=== PATIENT | female | born 1940 | race Caucasian/White ===

== ENCOUNTER 2024-01-21 08:46 | Outpatient (CLI) | payer MEDICARE, SELFPAY ==
--- NOTE | 2024-01-21 | ECHO_ITS ---
Patient Info Name: Lillian Hayden Age: 83 years : 1940 Gender: Female Ht: 60 in Wt: 147 lbs BSA: 1.70 m2 HR: 77 bpm BP: 142 / 85 mmHg Heart Rhythm: Sinus Rhythm Technical Quality: Good Exam Date: 01/21/2024 9:49 AM Exam Location: Echo Lab Patient Status: Outpatient Admit Date: 01/21/2024 Staff Ordering Physician: Marlo, Cirilo FLETCHER Dispatch Specialist: Attending Provider: Marlo, Cirilo FLETCHER Exam Type: CA echo doppler color flow Study Info Indications R01.1 - Cardiac murmur, unspecified Complete two-dimensional, color flow and Doppler transthoracic echocardiogram is performed. Summary 1. Complete two-dimensional, color flow and Doppler transthoracic echocardiogram is performed. 2. Left ventricular chamber dimension is normal. 3. Left ventricular systolic function is normal, estimated at 65-70%. 4. There is mildly increased left ventricular wall thickness. 5. Left ventricular septal wall motion is abnormal with septal motion related to bundle branch block. 6. The left ventricular diastolic function is grade I diastolic dysfunction. 7. There is mild mitral valve regurgitation. Left Ventricle Left ventricular chamber dimension is normal. Left ventricular systolic function is normal, estimated at 65-70%. There is mildly increased left ventricular wall thickness. Left ventricular septal wall motion is abnormal with septal motion related to bundle branch block. The left ventricular diastolic function is grade I diastolic dysfunction. Right Ventricle Right ventricular chamber dimension is normal. Right ventricular systolic function is normal. Left Atria Left atrial chamber dimension is normal. Right Atria Right atrial chamber dimension is normal. Aortic Valve The aortic valve is trileaflet. There is no aortic valve stenosis. There is no aortic valve regurgitation. Pulmonic Valve The pulmonic valve is normal. There is trace pulmonic regurgitation. Mitral Valve The mitral valve has thickened leaflets. There is mild mitral valve regurgitation. The mitral valve annulus is severely calcified. Tricuspid Valve The tricuspid valve leaflets are normal. There is trace tricuspid valve regurgitation. Unable to assess PA systolic pressure due to poor spectral resolution of tricuspid regurgitant jet velocity. Pericardium/Pleural The pericardium appears normal. There is trivial pericardial effusion. Inferior Vena Cava Dilated inferior vena cava with >50% collapse upon inspiration consistent with elevated right atrial pressure, 10 mmHg. Aorta The aortic root size at the sinus of Valsalva is normal. Left Ventricular Outflow Tract Name Value Normal LVOT 2D LVOT Diameter 2.0 cm LVOT Doppler LVOT Peak Gradient 4 mmHg LVOT Mean Gradient 2 mmHg LVOT VTI 23 cm LVOT VTI/AV VTI Ratio 0.6 LVOT Stroke Volume 72 ml LVOT CO 4.7 l/min LVOT CI 2.7 l/min/m2 Pulmonic Valve Name Value
== END 2024-01-21 08:47 | disposition home or self-care (01) ==
PROVIDERS: PCP Internal Medicine; Visit Provider Internal Medicine
DX: R93.1 Abnormal findings on diagnostic imaging of heart and coronary circulation (principal); I34.0 Nonrheumatic mitral (valve) insufficiency; I07.1 Rheumatic tricuspid insufficiency
CPT/HCPCS: 93306

== ENCOUNTER 2024-01-23 09:38 | Outpatient (CLI) | payer MEDICARE, SELFPAY ==
--- NOTE | ~2024-01-23 | XR_ITS ---
Right Knee Technique: AP, lateral, and sunrise views were obtained. Clinical History: Osteoarthritis Findings: No fracture or dislocation is seen. Osseous alignment is anatomic. Minimal tricompartmental degenerative spurring present. Soft tissues are unremarkable. No joint effusion is seen. Impression: Minimal tricompartmental degenerative spurring. Reviewed, dictated and finalized at [facility]. Impression: Minimal tricompartmental degenerative spurring.
--- NOTE | ~2024-01-23 | XR_ITS ---
Left Knee Technique: AP, lateral, and sunrise views were obtained. Clinical History: Osteoarthritis Findings: No fracture or dislocation is seen. Osseous alignment is anatomic. There is moderate medial joint line spurring and probable medial compartment narrowing. There is mild spurring at the remaind er of the knee.. Soft tissues are unremarkable. No joint effusion is seen. Impression: Moderate medial compartment degenerative change, and mild lateral and patellofemoral compartment dege nerative change. Reviewed, dictated and finalized at location M. Impression: Moderate medial compartment degenerative change, and mild lateral and patellofe moral compartment degenerative change.
== END 2024-01-23 09:39 | disposition home or self-care (01) ==
PROVIDERS: PCP Internal Medicine; Visit Provider Orthopaedic Surgery
DX: M17.0 Bilateral primary osteoarthritis of knee (principal)
CPT/HCPCS: 73564

== ENCOUNTER 2024-03-17 19:38 | Observation (INO) | payer MEDICARE, SELFPAY ==
[2024-03-17] VITALS (15 sets, daily range): BP systolic 134–154; BP diastolic 48–88; PULSE 67–77; RESP 14–16; TEMP 36.6; O2SAT 94–100
--- NOTE | ~2024-03-17 | CT_ITS ---
EXAMINATION: CTA BRAIN/CAROTID DATE: 03/17/2024 21:22 INDICATION: Left eye temporal visual field loss. TECHNIQUE: Computed tomographic angiography (CTA) of the head and neck was performed with 100 mL Omni paque-350 intravenous contrast. Multiplanar reconstructions and maximum intensity projection 3D-recon structions of the carotid arteries and of the intracranial arteries were created by the technologist on a separate workstation. Precontrast CT of the head was also obtained. Automated exposure control and iterative reconstruction technique were employed.The dose-length product was 1734.68 mGy-cm. COMPARISON: None. FINDINGS: Carotid arteries: Aortic arch is normal in caliber with no dissection. There is small amount of atherosclerotic plaque with 0% stenosis of the right carotid bulb relative to normal distal artery lumen diameter (NASCET cr iteria). There is no evident plaque with 0% stenosis of the left carotid bulb relative to normal dist al artery lumen diameter. The proximal bilateral vertebral arteries are tortuous. Multinodular goiter with largest nodule measuring at least 2 cm in the right thyroid lobe. Visualized upper lungs are cl ear. Severe cervical spondylosis. Prominent erosion at the right base of the dens. Head: No acute intracranial hemorrhage, acute infarction or abnormal extra axial fluid collection. There is mild scattered white matter hypoattenuation consistent with chronic small vessel ischemic disease. S ymmetric prominence of the sulci and ventricles consistent with mild to moderate age-appropriate diff use cerebral volume loss. No mass/mass effect. Changes of bilateral intraocular lens replacement. The orbits, paranasal sinuses and mastoid air cells are normal. No abnormally enhancing brain lesions on the post contrast images. Intracranial arteries There is no hemodynamically significant stenosis in the vertebral, basilar and internal carotid arter ies. Vertebral arteries are codominant. There are no aneurysms identified. Both A1 and P1 segments a re patent. The left P1 segment is diminutive with the majority of flow to the left posterior cerebral artery supplied via a larger caliber left posterior communicating artery. There appears to be a dimi nutive right posterior communicating artery. Cerebral arterial arborization appears symmetric. IMPRESSION: 1. 0% stenosis of the right and left carotid bulbs relative to normal distal artery lumen diameter (N ASCET criteria). 2. Age-related changes in the brain including mild to moderate diffuse volume loss and mild scattered white matter hypoattenuation consistent with chronic small vessel ischemic disease. No acute intracr anial process. 3. Unremarkable cerebral CT angiogram with no hemodynamically significant stenosis, aneurysm or disse ction. Reviewed, dictated and finalized at location A. IMPRESSION: 1. 0% stenosis of the right and left carotid bulbs relative to normal distal ar phil lumen diameter (NASCET criteria). 2. Age-related changes in the brain including mild to moderate diffuse volume l oss and mild scattered white matter hypoattenuation consistent with chronic sma ll vessel ischemic disease. No acute intracranial process. 3. Unremarkable cerebral CT angiogram with no hemodynamically significant steno sis, aneurysm or dissection.
--- NOTE | ~2024-03-17 | MR_ITS ---
MRI of the brain Clinical History: TIA Technique: Axial and sagittal T1-weighted images were acquired. These were followed by axial T2-weigh victoria, diffusion weighted, gradient, and FLAIR images. Findings: There is no acute infarct, intracranial hemorrhage or mass lesion identified. There are mil d chronic microvascular ischemic changes in the periventricular white matter bilaterally. Ventricles and subarachnoid spaces are mildly dilated. Orbits are unremarkable. Paranasal sinuses and mastoid air cells are clear. Major intracranial flow voids are intact. Sagittal midline structures are intact. IMPRESSION: No acute infarct, intracranial hemorrhage, or mass lesion. Mild generalized atrophy and mild chronic microvascular ischemic changes. Reviewed, dictated and finalized at location .
--- NOTE | 2024-03-17 20:20 | ED.GENADULT ---
HPI - General Adult General Chief complaint: Eye Problems Stated complaint: VISION PROBLEMS Time Seen by Provider: 03/17/24 19:56 History of Present Illness HPI narrative: This is an 83-year-old woman presenting with a brief episode of painless vision loss. At 6:50 a.m. the patient noticed that she had lost the temporal field left eye. It returned by 710pm. No other associated neurologic deficits. No pain in her eye. Related Data Allergies Allergy/AdvReac Type Severity Reaction Status Date / Time adhesive tape Allergy Blister Verified 03/17/24 19:42 aspirin Allergy Nausea and Verified 03/17/24 19:42 Vomiting Penicillins Allergy Hives Verified 03/17/24 19:42 Exam Narrative: APPEARANCE: No apparent distress. Head: atraumatic. EYES: EOMI, NOSE: Atraumatic NECK: Trachea midline RESPIRATORY: No increased rate of breathing, CTAB CARDIOVASCULAR: RRR, peripheral edema-chronic ABDOMINAL: Non-distended ,soft nontender MUSCULOSKELETAl: No obvious deformities NEURO: Alert. Cranial nerves 2-12 grossly intact. Sensation light touch, motor function cerebellar function intact for 4 extremities. Gait exam was normal. SKIN:: Warm, dry. Normal color PSYCHIATRIC: Normal affect Eye exam: Fluorescein stain unremarkable. IOP 18 bilaterally, L 20/50 R 20/70 No visual field deficits. Unable to visualize the retina via funduscopy NIH 0 Course Vital Signs Vital signs: Vital Signs Temperature 97.8 F 03/17/24 19:37 Pulse Rate 73 03/17/24 19:37 Respiratory Rate 16 03/17/24 19:37 Blood Pressure 154/68 H 03/17/24 19:37 Pulse Oximetry 100 03/17/24 19:37 Oxygen Delivery Room Air 03/17/24 19:37 Temperature 97.8 F 03/17/24 19:37 Pulse Rate 67 03/17/24 23:33 Respiratory Rate 16 03/17/24 23:33 Blood Pressure 147/88 H 03/17/24 23:33 Pulse Oximetry 97 03/17/24 23:33 Oxygen Delivery Room Air 03/17/24 19:37 Medical Decision Making [facility] Narrative Medical decision making narrative: -Course: 83-year-old female presenting with painless loss of vision in her left eye. Symptoms lasted approximately [address] NIH is 0. CT imaging negative for acute findings did show multiple age-related findings. case was discussed with Dr. Hagan who recommended dual anti-platelet therapy, echocardiogram and MRI. Patient given aspirin/plavix. Patient will be admitted for TIA workup. -DDX includes but is not limited to: TIA/CVA, retinal artery occlusion retinal vein occlusion, retinal detachment -Co-morbidities complicating care: Hypertension, CHF -Independent interpretation of studies: labs reviewed. Potassium was 3.2 which is repleted orally. CTA head and neck showed: 1. 0% stenosis of the right and left carotid bulbs relative to normal distal artery lumen diameter (NASCET criteria). 2. Age-related changes in the brain including mild to moderate diffuse volume loss and mild scattered white matter hypoattenuation consistent with chronic small vessel ischemic disease. No acute intracranial process. 3. Unremarkable cerebral CT angiogram with no hemodynamically significant stenosis, aneurysm or dissection. Independent EKG interpretation: Rhythm [sinus], Rate [63], [place] -[normal], [place] -[ Prolonged, QRS [narrow], QTC [normal], T waves -[negative for concerning inversions], ST Segments - [Negative for concerning elevations] Final interpretations: sinus rhythm with first-degree AV block and 1 dropped beat. Possibly 2nd degree block Mobitz I vs. non-conducted PAC. -Discussion of Management/Consultants:Danya - Neurology, Betty - hospitalist -Interventions: plavix, 1 L NS, 40 meq potassium -Shared decision making / Disposition: observation Vital Signs Vital Signs: Vital Signs Temperature 97.8 F 03/17/24 19:37 Pulse Rate 73 03/17/24 19:37 Respiratory Rate 16 03/17/24 19:37 Blood Pressure 154/68 H 03/17/24 19:37 Pulse Oximetry 100 03/17/24 19:37 Oxygen Delivery Room Air 03/17/24 19
[2024-03-17] MEDS: SODIUM CHLORIDE 0.9% IV 1,000 ML 999 ML IV CONT (20:27)
[2024-03-17 20:45] LABS: Basophils Percent Auto 0.5 % (0.2-1.2); Eosinophils Absolute Auto 0.1 K/mm3 (0-0.3); Eosinophils Percent Auto 2.6 % (0-4.4); Hemoglobin 11.1 g/dL (12.0-15.0); Immature Granulocyte Absolute 0.01 K/mm3 (0.00-0.031); Immature Granulocyte Percent A 0.2 % (0-0.5); Immature Platelet Fraction Pct 3.9 % (0.9-11.2); Lymphocytes Absolute Auto 1.49 K/mm3 (0.9-3.2); Lymphocytes Percent Auto 35.7 % (18.3-44.2); Mean Corpuscular HGB Conc 32.6 g/dl (32-36); Mean Platelet Volume 10.4 fl (7.4-10.4); Monocytes Absolute Auto 0.4 K/mm3 (0.1-0.6); Monocytes Percent Auto 10.1 % (2.6-8.5); Neutrophils Absolute Auto 2.1 K/mm3 (1.3-6.7); Neutrophils Percent Auto 50.9 % (45.5-73.1); Platelet Count Result 119 k/mm3 (150-375); Red Blood Count 3.47 M/mm3 (4.2-5.4); Red Cell Distribution Width 13.1 % (11.5-14.5); White Blood Count 4.2 K/mm3 (4.5-10.0)
[2024-03-17 20:54] LABS: Prothrombin Time 13.4 Seconds (11.1-14.7)
[2024-03-17 20:55] LABS: Alanine Aminotransferase 11 U/L (6-35); Albumin Level 3.6 g/dL (3.5-5.1); Alkaline Phosphatase 69 U/L (38-126); Anion Gap 4 mmol/L (4-12); Aspartate Amino Transferase 21 U/L (14-36); Bilirubin,Total 0.5 mg/dL (0.2-1.3); Blood Urea Nitrogen 22 mg/dL (7-17); Calcium 8.9 mg/dL (8.4-10.2); Carbon Dioxide 28 mmol/L (22-30); Chloride 108 mmol/L (98-107); Estimated Glomerular Filt Rate > 60; Glucose 116 mg/dL (65-110); Potassium 3.2 mmol/L (3.4-5.0); Sodium 140 mmol/L (137-145)
[2024-03-17 20:55] LABS: Partial Thromboplastin Time 28.6 Seconds (22.3-36.8)
[2024-03-17] MEDS: POTASSIUM CHLORIDE 20 MEQ PACKET (FOR LIQUID) 40 MEQ PO (22:02)
[2024-03-17] MEDS: CLOPIDOGREL BISULFATE 75 MG TABLET PO (23:08)
--- NOTE | 2024-03-17 23:41 | ECG_ITS ---
SEE SCANNED COPY FOR CONFIRMED REPORT MTDD
[2024-03-18] VITALS (12 sets, daily range): BP systolic 113–162; BP diastolic 40–71; PULSE 65–90; RESP 14–18; TEMP 36.3–36.7; O2SAT 95–99
--- NOTE | 2024-03-18 | ECHO_ITS ---
Patient Info Name: Lillian Hayden Age: 83 years : 1940 Gender: Female Ht: 58 in Wt: 150 lbs BSA: 1.70 m2 HR: 90 bpm BP: 113 / 40 mmHg Heart Rhythm: Sinus Rhythm Technical Quality: Good Exam Date: 03/18/2024 9:28 AM Exam Location: Echo Lab Patient Status: Outpatient Admit Date: 03/18/2024 Staff Ordering Physician: Kayley Hernández DO Qa Specialist: Akilah Gomez RDCS Attending Provider: Kayley Hernández DO Referring Physician: Betty BUSBY; Exam Type: CA echo doppler w bubble study Study Info Indications - TIA Complete two-dimensional, color flow and Doppler transthoracic echocardiogram is performed. Summary 1. Left ventricular chamber dimension is normal. 2. Left ventricular systolic function is normal, estimated at 65-70%. 3. The left ventricular diastolic function is grade I diastolic dysfunction. 4. Right ventricular chamber dimension is mildly enlarged. 5. Right ventricular systolic function is normal. 6. Left atrial chamber dimension is moderately enlarged. 7. Right atrial chamber dimension is mildly enlarged. 8. Suspected patent foramen ovale visualized by agitated saline imaging. There is a small right to left shunt with bubble study consistent with possible PFO. 9. There is mild mitral valve regurgitation. 10. There is moderate tricuspid valve regurgitation. The degree of regurgitation may be underestimated due to eccentricity of the jet. Left Ventricle Left ventricular chamber dimension is normal. Left ventricular systolic function is normal, estimated at 65-70%. There is no increased left ventricular wall thickness. The left ventricular diastolic function is grade I diastolic dysfunction. Right Ventricle Right ventricular chamber dimension is mildly enlarged. Right ventricular systolic function is normal. Left Atria Left atrial chamber dimension is moderately enlarged. Right Atria Right atrial chamber dimension is mildly enlarged. Atrial Septum Suspected patent foramen ovale visualized by agitated saline imaging. There is a small right to left shunt with bubble study consistent with possible PFO. Aortic Valve The aortic valve is trileaflet. There is no aortic valve stenosis. There is no aortic valve regurgitation. Pulmonic Valve The pulmonic valve is not well visualized. There is trace pulmonic regurgitation. Mitral Valve There is mild mitral valve regurgitation. The mitral valve annulus is mildly calcified. Tricuspid Valve There is moderate tricuspid valve regurgitation. The degree of regurgitation may be underestimated due to eccentricity of the jet. Pericardium/Pleural There is no pericardial effusion. Inferior Vena Cava The IVC was not visualized. Aorta The aortic root size at the sinus of Valsalva is normal. Left Ventricular Outflow Tract Name Value Normal LVOT 2D LVOT Diameter 1.8 cm LVOT Doppler LVOT Peak Gradient 3 mmHg LVOT Mean Gradient 2 mmHg LVOT VTI 27 cm LVOT VTI/AV VTI Ratio 0.7 LVOT Stroke Volume 68 ml LVOT CO 4.2 l/min LVOT CI
--- NOTE | 2024-03-18 00:34 | ADMGEN ---
This patient, Andres Hayden, was admitted to Medical Room 251-. Patient/family oriented to hospital policies and general routines including ID bracelet, bed and alarms, visiting hours, pain management, procedures, bathroom and other care routines, personal items, smoking policy, room service/diet, and visiting hours. Information on how to activate the Rapid Response Team has been discussed. Patient/Family are encouraged to report perceived risks to care and to ask questions if they do not understand what they are told or what they should do.
--- NOTE | 2024-03-18 07:14 | PM.IMHP ---
H&P: HPI History of Present Illness Date/Time: 03/18/24 07:14 Chief Complaint: Visual changes Narrative: this is a 83-year-old female with a past medical history of hypertension and hyperlipidemia presented to the ED on 03/17/2024 due to painless vision loss. She had an episode earlier that day that resolved and then again in the evening that prompted her to present to the ED. at the time of her presentation vision changes had resolved. She has no history of CVA in the past. No other neurological deficits. CT of the head negative for acute findings. Neurology consulted and wanted the patient admitted for an echocardiogram and MRI as well as starting her on aspirin and Plavix. Patient was admitted to the medical floor echocardiogram and MRI were ordered. At approximately 3:00 p.m. patient decided to leave AMA. Patient's MRI and echocardiogram were not read yet. Will call patient with results. [facility] Past Medical History Medical History (Updated 03/18/24 @ 08:30 by Misha Quintana) History of cardiac disorder Hyperlipidemia Hypertension Hypertension Osteoporosis Surgical History Surgical History (Updated 03/18/24 @ 08:30 by Misha Quintana) Cataract extraction status (~2018) Family History Family History (System 03/18/24 @ 08:30 by Misha Quintana) Father Heart attack Other Breast cancer Heart disease Arthritis Other Family history of arthritis Family history of congenital heart disease Family history of malignant neoplasm of breast Social History Social History (System 03/18/24 @ 08:30 by Misha Quintana) Smoking status: Never smoker Alcohol intake: never Substance use: never Substance use type: does not use Do You Feel Safe in your Home?: Yes Lack of Transportation: No Lack of Food: Never True Current Housing: I Have Housing Concerned About Future Housing: No Difficulty Paying Gas/Electric Bills: No Difficulty Paying for Meds: No Currently Unemployed: No Education: High School Diploma/GED Difficulty w/ Childcare or Family Care: No Spiritual care concerns: No Meds Home Medications and Allergies Home Medications Medication Instructions Recorded Confirmed Type atorvastatin 10 mg tablet 10 mg PO DAILY 10/20/19 01/26/24 History furosemide 40 mg tablet 40 mg PO QAM 10/20/19 01/26/24 History losartan 100 mg tablet 100 mg PO DAILY 10/20/19 01/26/24 History acetaminophen 650 mg 650 mg PO Q12H 04/14/23 01/26/24 History tablet,extended release (Tylenol Arthritis Pain) Dialyvite Vitamin D 50 mcg PO DAILY 03/18/24 03/18/24 History Ocuvite 1 tab-cap PO DAILY 03/18/24 03/18/24 History atorvastatin 10 mg tablet 10 mg PO DAILY 03/18/24 03/18/24 History furosemide 40 mg tablet 40 mg PO DAILY 03/18/24 03/18/24 History losartan 100 mg tablet 100 mg PO DAILY 03/18/24 03/18/24 History potassium chloride 10 mEq 10 meq PO DAILY 03/18/24 03/18/24 History tablet,extended release Allergies Allergy/AdvReac Type Severity Reaction Status Date / Time egg Allergy Mild DIARRHEA, Verified 03/18/24 08:30 SICK TP STOMACH. DOES NOT GET FLU SHOT ampicillin Allergy Unknown Unknown Verified 03/18/24 08:30 adhesive tape Allergy Blister Verified 03/18/24 08:30 aspirin Allergy Nausea and Verified 03/18/24 08:30 Vomiting Penicillins Allergy Hives Verified 03/18/24 08:30 codeine AdvReac Mild THROWS UP Verified 03/18/24 08:30 Sulfa (Sulfonamide AdvReac Mild THROW UP Verified 03/18/24 08:30 Antibiotics) Vital Signs Vital Signs - 24 hr 03/17/24 19:37 03/17/24 20:52 03/17/24 20:07 Temperature 97.8 F Pulse Rate 73 74 Respiratory Rate 16 16 Blood Pressure 154/68 H 142/49 H Pulse Oximetry 100 94 97 Oxygen Delivery Room Air 03/17/24 20:17 03/17/24 20:18 03/17/24 20:30 Temperature Pulse Rate 67 Respiratory Rate 14 Blood Pressure 134/48 L Pulse Oximetry 98 98 97 Oxygen Delivery 03/17/24 20:45 03/17/24 21:00
[2024-03-18 07:43] LABS: Hematocrit 34.8 % (37.0-47.0); Hemoglobin 11.1 g/dL (12.0-15.0); Immature Platelet Fraction Pct 3.4 % (0.9-11.2); Mean Corpuscular HGB Conc 31.9 g/dl (32-36); Mean Corpuscular Hemoglobin 31.5 pg (26-34); Mean Corpuscular Volume 98.9 fl (80-100); Mean Platelet Volume 10.7 fl (7.4-10.4); Platelet Count Result 121 k/mm3 (150-375); Red Blood Count 3.52 M/mm3 (4.2-5.4); Red Cell Distribution Width 13.2 % (11.5-14.5); White Blood Count 3.7 K/mm3 (4.5-10.0)
[2024-03-18 07:57] LABS: Anion Gap 2 mmol/L (4-12); Blood Urea Nitrogen 15 mg/dL (7-17); Calcium 8.8 mg/dL (8.4-10.2); Carbon Dioxide 28 mmol/L (22-30); Chloride 108 mmol/L (98-107); Cholesterol 126 mg/dL (0-200); Estimated Glomerular Filt Rate > 60; Glucose 93 mg/dL (65-110); HDL Direct 69 mg/dL; Potassium 3.6 mmol/L (3.4-5.0); Sodium 138 mmol/L (137-145); Triglycerides 71 mg/dL (<150)
[2024-03-18 08:02] LABS: LDL Cholesterol Direct 60 mg/dL
[2024-03-18] MEDS: POTASSIUM CHLORIDE 10 MEQ ER TABLET PO (08:17)
[2024-03-18] MEDS: ATORVASTATIN 10 MG TABLET PO (08:18)
[2024-03-18] MEDS: LOSARTAN POTASSIUM 100 MG TABLET PO (08:18)
[2024-03-18] MEDS: FUROSEMIDE 40 MG TABLET PO (08:18)
[2024-03-18 09:55] LABS: Hemoglobin A1C 5.1 % (<5.7)
--- NOTE | 2024-03-18 16:10 | WPDNEURCNPN ---
Assessment and Plan Assessment and plan (1) Brain TIA: Code(s): G45.9 - Transient cerebral ischemic attack, unspecified Status: Acute Plan Patient is doing very well. Her CT angiogram of the head and neck and a CT scan of the brain were performed these did not show any abnormalities. MRI of the brain also did not show evidence for any acute stroke. Hence he should continue the statins and antiplatelets for now. I noted she is on atorvastatin 10 mg a day and day clopidogrel 75 mg a day. If he recurrent events I shall be glad to address them. Thank you very much for allowing sees patient Consult date: 03/18/24 HPI: Lillian Hayden is a 83 year old female history of sudden loss of vision on the left side that lasted for 20 minutes. She had no pain or any change in mental status or any weakness in upper lower limbs. Never had similar symptoms in the past. CT scan of brain and CT angiogram of his neck were performed did not show any abnormalities. Her LDL was 60. Patient told me that she has macular degeneration however this is a long-standing problem. There is no history of recent head trauma or febrile illness of any kind. Review of Systems Review of Systems: All systems reviewed & are unremarkable except as noted in HPI and below Constitutional: Constitutional: Denies chills, Denies fever(s) and Denies weight loss Eyes: Eyes: Denies diplopia and Reports loss of vision Comments: As discussed above she had transient loss of vision in the left half of the field for 20 minutes or so ENT: Denies dizziness, Denies hearing loss and Denies tinnitus Cardiovascular: Cardiovascular: Denies chest pain, Denies syncope and Denies dyspnea Respiratory: Respiratory: Denies cough, Denies dyspnea and Denies wheezing Gastrointestinal: Gastrointestinal: Denies abdominal pain, Denies change in bowel habits and Denies vomiting Genitourinary: Genitourinary: Denies urinary incontinence Musculoskeletal: Musculoskeletal: Denies arthralgias and Denies joint swelling Integumentary/Breasts: Skin/Breast: Denies new lesions and Denies rash Neurologic: Reports as per HPI, Denies dizziness, Denies syncope and Denies loss of vision Comments: Patient's daughter think that she is somewhat forgetful Psychiatric: Psychiatric: Denies anxiety and Denies depression Endocrine: Endocrine: Denies cold intolerance and Denies heat intolerance Hematologic/Lymphatic: Hematologic/Lymphatic: Denies easy bleeding and Denies easy bruising Allergic/Immunologic: Allergic/Immunologic: Denies no additional allergic/immunologic complaints and Denies wheezing PMFSH Past Medical History Medical History History of cardiac disorder Hyperlipidemia Hypertension Hypertension Osteoporosis Surgical History Surgical History Cataract extraction status (~2019) Family History Family History Father Heart attack Other Breast cancer Heart disease Arthritis Other Family history of arthritis Family history of congenital heart disease Family history of malignant neoplasm of breast Social History Social History Smoking status: Never smoker Alcohol intake: never Substance use: never Substance use type: does not use Do You Feel Safe in your Home?: Yes Lack of Transportation: No Lack of Food: Never True Current Housing: I Have Housing Concerned About Future Housing: No Difficulty Paying Gas/Electric Bills: No Difficulty Paying for Meds: No Currently Unemployed: No Education: High School Diploma/GED Difficulty w/ Childcare or Family Care: No Spiritual care concerns: No Meds Home Medications and Allergies Home Medications Medication Instructions Recorded Confirmed Type atorvastatin
== END 2024-03-18 14:57 ==
LOC: ANHED 22:59 → ANH2MED 03-18 00:22
PROVIDERS: Internal Medicine Critical Care Medicine; Admitting Provider Internal Medicine; Emergency Provider Emergency Medicine; PCP Internal Medicine; Visit Provider Internal Medicine
DX: G45.9 Transient cerebral ischemic attack, unspecified (principal); I11.9 Hypertensive heart disease without heart failure; I08.1 Rheumatic disorders of both mitral and tricuspid valves; E78.5 Hyperlipidemia, unspecified; M81.0 Age-related osteoporosis without current pathological fracture; Z79.899 Other long term (current) drug therapy
CPT/HCPCS: 36415; 70496; 70498; 70551; 80048; 80053; 80061; 83036; 85025; 85027; 85055; 85610; 85730; 93005; 93306; 96360; 96375; 99285; A9270; G0378; J7030; Q9967

== ENCOUNTER 2025-02-02 08:50 | Outpatient (CLI) | payer MEDICARE, SELFPAY ==
--- NOTE | ~2025-02-02 | XR_ITS ---
XR knee RT min 4V Ordering provider: Phil Garza MD History: . Primary osteoarthritis of lt and rt knee . Comparison: January 23, 2024 FINDINGS: BONES: No acute fracture or dislocation. JOINT SPACES: Severe narrowing of the lateral compartment. Slight narrowing of the medial compartment . Marginal osteophytes seen in the knee and patella. SOFT TISSUES: Normal. IMPRESSION: No acute osseous abnormality right knee. Severe osteoarthritic changes. Reviewed, dictated and finalized at location A.
--- NOTE | ~2025-02-02 | XR_ITS ---
XR knee LT min 4V Ordering provider: Phil Garza MD History: . Primary osteoarthritis of lt and rt knee . Comparison: January 23, 2024 FINDINGS: BONES: No acute fracture or dislocation. JOINT SPACES: Severe narrowing of the medial compartment marginal osteophytes seen in the knee and pa tella. Chondrocalcinosis is noted in the lateral meniscus. SOFT TISSUES: Normal. IMPRESSION: No acute osseous abnormality left knee. Severe osteoarthritic changes. Chondrocalcinosis. Reviewed, dictated and finalized at location A.
--- OUTSIDE RECORDS SUMMARY | 2025-02-02 09:37 | XMS_ITS | Clinical Summary ---
Author Organization [facility] [employer] Address [address] [place] [address] Care Team Providers Care Coal Passer Name Role Phone Cirilo Sellers MD Primary Care Provider [phone] Cirilo Sellers MD Unavailable [phone] Source Comments [facility],non-owned Affiliates and Associated Physician Practices is amultiple site organization consisting of ambulatory clinics and hospital sitesin [place], [place], [place] and [place]. This disclosure is being madepursuant to the Care Everywhere program and may not contain all information available regarding this patient. Last updated 18.[facility] Allergies Active Allergy Reactions Criticality Noted Date Comments Adhesive Sensitivity Rash High 09/05/2021 Aspirin Vomiting 03/26/2017 Penicillins 03/26/2017 Sulfa Drugs Itching 03/26/2017 Medications * Be aware that medications may not be up to date on this document. Alwaysverify current medications with the patient. Medication Sig Dispensed Refills Start Date End Date Status furosemide (LASIX) 20 MG tablet Take 20 mg by mouth once daily Active ATORVASTATIN CALCIUM PO Active losartan (COZAAR) 100 MG tablet 08/17/2021 Active traMADol (ULTRAM) 50 MG tablet Take 1 (one) tablet by mouth every 6 hours as needed for Pain 12 tablet 09/28/2021 Active Additional Information Patient not taking.Reported on 10/15/2021 potassium chloride ER (KLOR-CON M) 20 MEQ tablet potassium chloride ER 20 mEq tablet,extended release(part/cryst) TAKE 1 TABLET BY MOUTH EVERY DAY Active clindamycin (CLEOCIN) 150 MG capsule clindamycin HCl 150 mg capsule TAKE 1 CAPSULE BY MOUTH THREE TIMES DAILY FOR 3 DAYS Active Active Problems Problem Noted Date Diagnosed Date Malignant melanoma of right forearm 09/05/2021 Cancer Staging:Clinical:Stage IIB(cT3b, cN0, cM0) - Unsigned Pathologic stage from 02/19/2022:Stage IIB(pT3b, pN0, cM0) - Signed by Jaya Chang MD on 02/19/2022 Social History Tobacco Use Types Packs/Day Years Used Date Smoking Tobacco: Never Smokeless Tobacco: Never Alcohol Use Standard Drinks/Week Comments Never 0 (1 standard drink = 0.6 oz pur e alcohol) AUDIT-C Answer Date Recorded Q1: How often do you have a drink containing alc ohol? Never 09/27/2021 Average Number of Drinks Not on file 021 Q3: How often do you have si x or more drinks on one occasion? Never 09/27/2021 Sex and Gender Information Value Date Recorded Sex Assigned at Not on file Gender Identity Not on file Sexual Orientation Not on file Last Filed Vital Signs Vital Sign Reading Time Taken Comments Blood Pressure 150/66 10/15/2021 1:57 PM GLOBAL IMPLEMENTATION MANAGER Pulse 77 10/15/2021 1:57 PM GLOBAL IMPLEMENTATION MANAGER Temperature 36.1 C (96.9 F) 10/15/2021 1:57 PM GLOBAL IMPLEMENTATION MANAGER Respiratory Rate 12 09/27/2021 3:00 PM GLOBAL IMPLEMENTATION MANAGER Oxygen Saturation 99% 10/15/2021 1:57 PM GLOBAL IMPLEMENTATION MANAGER Inhaled Oxygen Concentration - - Weight 78.9 kg (174 lb) 10/15/2021 1:57 PM GLOBAL IMPLEMENTATION MANAGER Height 152.4 cm (5') 10/15/2021 1:57 PM GLOBAL IMPLEMENTATION MANAGER Body Mass Index 33.98 10/15/2021 1:57 PM GLOBAL IMPLEMENTATION MANAGER Plan of Treatment Health Maintenance Due Date Last Done Comments BONE DENSITY TESTING 1940 MEDICARE AWV 12 MONTHS 1940 DTAP/TDAP/TD VACCINES (1 - Tdap) 1957 PNEUMOCOCCAL VACCINE 50+ (1 of 1 - PCV) 1988 ZOSTER VACCINE (1 of 2) 1988 Respiratory Syncytial Virus (RSV) Vaccine Pt: or over 60 yrs (1 - 1-dose 75+ series) 2013 COVID-19 VACCINE (3 - 2023-2 5 season) 2024 01/23/2021, 12/26/2020 INFLUENZA VACCINE (#1) 2024 DEPRESSION SCREENING 11/10/2024 HEPATITIS B VACCINE Aged Out No longe r eligible based on patient's age to complete this topic HIB VACCINE Aged Out No longer eligi ble based on patient's age to complete this topic HPV VACCINE Aged Out No longer eligi ble based on patient's age to complete this topic MENINGOCOCCAL (Group B) VACCINE SHARED DECISION-MAKING Aged Out No longer eligible based on patient's age to complete this topic MENINGOCOCCAL GROUPS A/C/Y/W VACCINE Aged Out No longer eligible b ased on patient's age to complete this topic Advance Directives Documents on File Type Date Recorded Patient Faa Certified Powerplant Mechanic Expl anation Adv Directive/Living Will/POA 03/26/2017 Care Teams Coal Passer Relationship Specialty Start Date End Date Cirilo Sellers MD PCP - General 08/22/21 Cirilo Sellers MD Internal Medicine 08/22/21
--- OUTSIDE RECORDS SUMMARY | 2025-02-02 09:37 | XMS_ITS | Encounter Summary ---
Author Organization [facility] Address [address] [place] [address] Care Team Providers Care Senior Quality Analyst Name Role Phone Cirilo Sellers MD Primary Care Provider [phone] Cirilo Sellers MD Unavailable [phone] Encounter Details Date Type Department Care Team (Late st Contact Info) Description 08/22/2021 Lab Requisition [facility] [address] [place] [address] Bharath Bland MD [address] [place], [place] [id number] Social History Tobacco Use Types Packs/Day Years Used Date Smoking Tobacco: Never Smokeless Tobacco: Never Sex and Gender Information Value Date Recorded Sex Assigned at Not on file Gender Identity Not on file Sexual Orientation Not on file documented as of this encounter Plan of Treatment Not on file documented as of this encounter Procedures Procedure Name Priority Date/Time Associated Diagnosis Comments DERMPATH SLIDE CONSULT Routine 08/22/2021 12:00 AM CDT documented in this encounter Results * DERMPATH SLIDE CONSULT (08/22/2021 12:00 AM CDT) Case Report Dermatopathology Report Case: [id number] Authorizing Provider: Bharath Bland MD Collected: 08/22/2021 12:00 AM Ordering Location: [facility] DermPath Lab Received: 08/22/2021 09:42 AM Pathologist: Mary Ann Smith MD Specimen: Slide(s), right forearm, [id number]# [id number] 5:43 PM T DERMATOPATHOLOGY LABORATORY Final Diagnosis Specimen A. Slide(s), right forearm, OSC# [id number]: MALIGNANT MELANOMA,SUPERFICIA L SPREADING TYPE. BRESLOW DEPTH 3.5 MM, ULCERATED, JADEN LEVEL IV. PRESENT AT MARGIN (C43.61) (see microscopic description) 5:43 PM T DERMATOPATHOLOGY LABORATORY Clinical History Materials received from: [employer] [address] [place] [id number] Received at the request of Dr. Bharath Bland, a consult will be performed on 1 (H&E) slide(s) and 1 block(s) labeled [id number]. Bx Date: 08/07/2021 R/O SCC or other neoplasia. All slides returned. Any additional sections, special stains or immunohistochemical stains performed by our laboratory will be kept here on file. 5:43 PM [facility] DERMATOPATHOLOGY LABORATORY Microscopic Description Specimen A. Slide(s), right forearm, OSC# [id number]: Sections show a proliferation of melanocytes distributed in an irregular pattern at the dermal epidermal junction. In the dermis there are nests and single melanocytes forming a nodule which extends to the base of the specimen. MART-1/Melan-A immunohistochemical stain on the provided block at [facility] Dermatology highlights the melanocytes as above. Additional deeper sections were obtained and reviewed. This lesion is present at the margin of the specimen. 5:43 PM [facility] DERMATOPATHOLOGY LABORATORY Disclaimer An external and internal positive and negative controls are appropriate for the histochemical, immunohistochemical and immunofluorescence stain(s) in this case (if any), except where stated explicitly. The performance characteristics of the stain(s) cited in this report were developed and its performance characteristic determined by the Dermatopathology Laboratory at [facility], directed by Dr. Tyler De Guzman. These tests need not be, and therefore are not, approved by the [place] Food and Drug Administration. The tests are used for clinical purposes. Billing Codes Specimen Charges Stain Charges 13232 1 61333 1 5:43 PM CDT DERMATOPATHOLOGY LABORATORY Synoptic Report MELANOMA OF THE SKIN: Biopsy MELANOMA OF THE SKIN: BIOPSY - All Specimens 8th Edition - Protocol posted: 03/08/2020 SPECIMEN Procedure: Biopsy, shave Specimen Laterality: Right TUMOR Tumor Site: Skin of upper limb and shoulder: forearm Histologic Type: Superficial spreading melanoma (low-cumulative sun damage (CSD) melanoma) Maximum Tumor (Breslow) Thickness (Millimeters): At least: 3.5 mm mm : tumor is present at the surgical margin; therefore, the final depth may exceed the current one Ulceration: Present Anatomic (Jaden) Level: At least level: IV : tumor is present at the surgical margin; therefore, the final depth may exceed the current one Mitotic Rate: 14 mitoses per mm2 Microsatellite(s): Not identified Lymphovascular Invasion: Not identified Neurotropism: Not identified Tumor-Infiltrating Lymphocytes: Present, nonbrisk Tumor Regression: Not identified MARGINS: Peripheral Margins: Negative for invasive melanoma Status of Melanoma in situ at Peripheral Margins: Melanoma in situ present at margin Deep Margin: Invasive melanoma present at margin PATHOLOGIC STAGE CLASSIFICATION (pTNM, AJCC 8th Edition): Primary Tumor (pT): pT3b Comment(s) Comment(s): This case was also reviewed by Dr. Yulissa Hamlin, who agrees 5:43 PM CDT DERMATOPATHOLOGY LABORATORY Embedded Images 5:43 PM CDT DERMATOPATHOLOGY LABORATORY Pathology/Cytolog y SLIDE / Unknown 08/22/2021 08/22/2021 9:42 AM CDT Bharath Bland MD LAB - PATHOLOGY/CYTO LOGY ORDERABLES DERMATOPATHOLOGY LABORATORY [facility] - Department of Dermatology [address] [phone] documented in this encounter Visit Diagnoses Not on filedocumented in this encounter Care Teams Senior Quality Analyst Relationship Specialty Start Date End Date Cirilo Sellers MD PCP - General 08/22/21 Cirilo Sellers MD Internal Medicine 08/22/21 documented as of this encounter
--- OUTSIDE RECORDS SUMMARY | 2025-02-02 09:38 | XMS_ITS | Clinical Summary ---
Author Organization [facility] Address [address] [place] [address] Phone Care Team Providers Care Freight Receiver Name Role Phone Cirilo Sellers MD Primary Care Provider [phone] Davie Wiseamn MD Unavailable [phone] Allergies Active Allergy Reactions Criticality Noted Date Comments Aspirin Unknown 02/27/2024 Wound Dressing Adhesive Rash 12/17/2024 Medications atorvastatin (LIPITOR) 10 MG Tablet Take 10 mg by mouth daily. Active cyclobenzaprine (FLEXERIL) 5 MG Tablet Take 5 mg by mouth 3 times daily as needed. Active furosemide (LASIX) 40 MG Tablet Take 40 mg by mouth daily. Active losartan (COZAAR) 100 MG Tablet Take 100 mg by mouth daily. Active naproxen (NAPROSYN) 375 MG Tablet Take 375 mg by mouth 2 times daily (with meals). Active potassium chloride CR (KLORCON) 10 MEQ Tablet Controlled Release Take 10 mEq by mouth daily. Active tiZANidine (ZANAFLEX) 4 MG Tablet Take 4 mg by mouth every 6 hours as needed. Active memantine (NAMENDA) 10 MG TabletIndication s:Mild late onset Alzheimer's dementia without behavioral disturbance, psychotic disturbance, mood disturbance, or anxiety (HCC) Take 1 Tablet by mouth 2 times daily. 180 Tablet 1 10/01/2024 Active Encounters Date Type Department Care Team Description 12/17/2024 1:30 PM ASSISTED LIVING CARE MANAGER Clinical Support [facility] Oncology Services [address] [place] [address] Cirilo Sellers MD Osteoporosis without current pathological fracture, unspecified osteoporosis type (Primary Dx) Discharge Disposition: Discharged to home or Selfcare 12/17/2024 Travel 12/13/2024 Transcribe Orders [facility] Central Scheduling [address] [place] [address] Cirilo Sellers MD Age related osteoporosis, unspecified pathological fracture presence (Primary Dx) from Last 3 Months Immunizations Immunization Administration Dates Next Due Influenza, Trivalent, Adjuvanted, PF 08/12/2024 Family History Medical History Relation Name Comments Breast Cancer Maternal Grandmother Relation Name Status Comments Maternal Grandmother Social History Tobacco Use Types Packs/Day Years Used Date Smoking Tobacco: Never Smokeless Tobacco: Never Tobacco Cessation:Counseling Given: Not Answered Alcohol Use Standard Drinks/Week Comments Not Currently 0 (1 standard drink = 0.6 oz pur e alcohol) Sexually Active Control Partners Comments Not Currently Comments No Sex and Gender Information Value Date Recorded Sex Assigned at Not on file Legal Sex Female 8:45 PM CDT Gender Identity Not on file Sexual Orientation Not on file Last Filed Vital Signs Vital Sign Reading Time Taken Comments Blood Pressure 151/66 12/17/2024 1:26 PM ASSISTED LIVING CARE MANAGER Pulse 76 12/17/2024 1:26 PM ASSISTED LIVING CARE MANAGER Temperature 36.4 C (97.5 F) 10/01/2024 11:11 AM ASSISTED LIVING CARE MANAGER Respiratory Rate 16 12/17/2024 1:26 PM ASSISTED LIVING CARE MANAGER Oxygen Saturation 97% 12/17/2024 1:26 PM ASSISTED LIVING CARE MANAGER Inhaled Oxygen Concentration - - Weight 66.5 kg (146 lb 8 oz) 10/01/2024 11:11 AM ASSISTED LIVING CARE MANAGER Height 147.3 cm (4' 10 ) 10/01/2024 11:11 AM ASSISTED LIVING CARE MANAGER Body Mass Index 30.62 10/01/2024 11:11 AM ASSISTED LIVING CARE MANAGER Plan of Treatment Upcoming Encounters Date Type Department Care Team (Late st Contact Info) Description 04/05/2025 10:00 AM CDT Office Visit [facility] Medical [facility] Neurology [facility] [address] [place] [address] Davie Wiseman MD [address] [place] [address] Health Maintenance Due Date Last Done Comments DEXA Bone Density 1940 Hepatitis C Virus (HCV) Screening 1940 TdaP Immunization 1940 Zoster Immunization (2 of 3) 04/17/2009 02/20/2009 SARS-COV-2 Immunization ( season) 2024 08/29/2023, 09/07/2021, 01/23/2021, Additional history exists Pneumococcal Immunization (50+ years) Completed 03/28/2016, 08/17/2012 Pneumococcal Immunization Combined Discontinued 03/28/2016, 08/17/2012 Respiratory Syncytial Virus (RSV) Immunization (Adult) Completed 08/27/2023 Influenza Immunization Completed , 08/27/2023, 08/12/2022, Additional history exists Hepatitis B Immunization Aged Out No longer eligible based on patient's age to complete this topic Meningococcal Immunization (ACWY) Aged Out No longer eligible based on patient's age to complete this topic Rotavirus Immunization Aged Out No lo nger eligible based on patient's age to complete this topic Procedures Procedure Name Priority Date/Time Associated Diagnosis Comments CMP (COMPREHENSIVE METABOLIC PANEL) Routine 12/17/2024 10:19 AM ASSISTED LIVING CARE MANAGER Age related osteoporosis, unspecified pathological fracture presence from Last 3 Months Results * (ABNORMAL) CMP (COMPREHENSIVE METABOLIC PANEL) (12/17/2024 10:19 AM ASSISTED LIVING CARE MANAGER) SODIUM 144 136 - 145 mmol/L 12/17/2024 11:43 AM ASSISTED LIVING CARE MANAGER [facility] POTASSIUM 3.4(L) 3.5 - 5.1 mmol/L 12/17/2024 11:43 AM ASSISTED LIVING CARE MANAGER [facility] CHLORIDE 105 98 - 107 mmol/L 12/17/2024 11:43 AM ASSISTED LIVING CARE MANAGER [facility] CO2, VENOUS 32(H) 22 - 30 mmol/L 12/17/2024 11:43 AM [facility] ANION GAP 10.4 <18.0 mmol/L 12/17/2024 11:43 AM [facility] GLUCOSE 101(H) 70 - 99 mg/dL 12/17/2024 11:43 AM [facility] BUN 18 10 - 20 mg/dL 12/17/2024 11:43 AM [facility] CREATININE, BLOOD 0.62 0.60 - 1.00 mg/dL 12/17/2024 11:43 AM [facility] BUN/CREATININE RATIO 29(H) 12 - 20 ratio 12/17/2024 11:43 AM [facility] TOTAL PROTEIN 6.3 6.0 - 8.0 g/dL 12/17/2024 11:43 AM [facility] ALBUMIN 3.6 3.5 - 5.0 g/dL 12/17/2024 11:43 AM [facility] A/G RATIO 1.3 1.0 - 2.2 12/17/2024 11:43 AM [facility] CALCIUM 8.8 8.7 - 10.5 mg/dL 12/17/2024 11:43 AM [facility] T BILI 0.7 0.2 - 1.2 mg/dL 12/17/2024 11:43 AM [facility] SGOT (AST) 21 6 - 42 U/L 12/17/2024 11:43 AM [facility] SGPT (ALT) 10 6 - 55 U/L 12/17/2024 11:43 AM [facility] ALKALINE PHOSPHATASE 64 40 - 150 U/L 12/17/2024 11:43 AM [facility] IS THE PATIENT REQUIRED TO BE FASTING? No 12/17/2024 11:43 AM [facility] GFR, ESTIMATED >60 >=60 12/17/2024 11:43 AM [facility] Comment: Creatinine Clearance is the preferred criteria for selecting drug dose adjustments in renally impaired patients. The GFR is provided as additional pertinent clinical information. GFR is reported in mL/min/1.73 sq m. Calculation based on the Chronic Kidney Disease Epidemiology Collaboration (CKD- EPI) equation refit without adjustment for race. GFR, EST. >60 >=60 025 11:43 AM ASSISTED LIVING CARE MANAGER [facility] GFR, EST. NONAFRICAN >60 >=60 12/17/2024 11:43 AM ASSISTED LIVING CARE MANAGER [facility] Blood Venipuncture / Unknown 12/17/2024 10:19 AM ASSISTED LIVING CARE MANAGER 12/17/2024 11:12 AM ASSISTED LIVING CARE MANAGER Cirilo Sellers MD CHEMISTRY ORDERABLES Final Re sult [facility] [address] [place] [address] from Last 3 Months Insurance [facility] MEDICARE Advance Directives Documents on File Type Date Recorded Patient Stripe Matcher Expl anation Power of Fresh Foods Technician for Health Care 05/28/2024 2:24 PM POA Healthcare Care Teams Freight Receiver Relationship Specialty Start Date End Date Cirilo Sellers MD PCP - General Internal Medicine 10/05/18 Davie Wiseman MD [address] [place] [address] Consulting Physician Neurology 07/01/24
--- OUTSIDE RECORDS SUMMARY | 2025-02-02 09:38 | XMS_ITS | Data Portability ---
Author Organization [place] [employer], Main Office Address [address] [place] [address] Care Team Providers Care Medical Office Technician Name Role Phone IESHA SELLERS Primary Care Provider [phone] IESHA SELLERS Referring Provider [phone] Assessment Encounter Date Assessment Date Assessment LastModified by Organization Details LastModified Time 03/24/2023 03/24/2023 Continue current therapy last blood work been reviewed diagnosis assessment plan have been reviewed and discussed follow-up in 4 months. [email or web address] Not available 03/24/2023 22:22:08 08/13/2023 08/13/2023 Continue current therapy Medicare annual wellness completed all diagnosis in assessment and plan have been discussed follow-up in 4 months [email or web address] Not available 08/17/2023 11:12:44 09/03/2023 09/03/2023 Etiology unclear doxycycline Medrol Dosepak empirically she will let me know in 5 days how she is doing [email or web address] Not available 09/03/2023 21:40:39 10/22/2023 10/22/2023 Thinks he is getting a little bit better with the Medrol Dosepak which we will finish in she will call back [email or web address] Not available 11/11/2023 22:56:54 11/26/2023 11/26/2023 Dyslipidemia atorvastatin osteoarthritis ibuprofen p.r.n. hypertension losartan she will follow-up with me in about 6 weeks any dizziness she will let us know [email or web address] Not available 12/09/2023 09:36:43 Plan of Treatment Reminders Order Date Submit Date Provider Last Modified By Organization Details Last Modified Time Details Appointments None record ed. Lab None record ed. Referral None record ed. Procedures None record ed. Surgeries None record ed. Imaging None record ed. Medication Orders None record ed. Patient TargetsNo targets recorded. Patient Instructions Encounter Date Encounter Id Patient Instructions Last Modified By Organization Details Last Modified Time 08/13/2023 [id number] dementia rating scale-2* [email or web address] Not available 08/17/2023 11:13:05 depression screening* Not available 08/17/2023 11:13:05 alcohol misuse* [email or web address] Not available 08/17/2023 11:13:05 multi-dimensiona l health assessment questionnaire* [email or web address] Not available 08/17/2023 11:13:05 Personalized Hea lt Plan and Screening Recommendations Advance Directives - Do you have one? Yes Advance Directives - Do we have your advance directive on file in your health record? No, please bring in a copy at your earliest convenience Primary Prevention/Interven tion (prevents or decreases the chance of common diseases from occurring) Smoking Risk: Non Smoker Alcohol Misuse Screening: Negative Weight: Appropriate Overwei ght continue your current weight loss efforts try to lose 5% of your body weight Physical activity: Appropriate physical activity Nutrition: Good Fall Risk (screened today): Low Refer to attached handout Preventing Falls: After your Visit Vaccines Pneumococcal: Ordered Recommended today Recommended today, but you have declined No further needed Influenza: Your next one in the fall of this year Chronic Disease Risks Stroke: Low Risk Intermediate Risk Heart Attack: Low risk Intermediate Risk Clogging of the Arteries: Low risk Intermediate Risk Diabetes: Low Risk I have no recommendations Secondary Prevention/Interven tion (detects treatable diseases before they may cause symptoms, disability, or ) Breast Cancer Screening with mammogram: No screening necessary Cervical/Uterine/Ov simon Cancer Screening: No screening necessary Osteoporosis Screening: No screening necessary Date Screening Last Performed: 11/14/20 Colon Cancer Screening: Colonoscopy No screening necessary Date Screening Last Performed: 10/03/15 Eye Disease Screening: Dementia Risk: Low I have no recommendations Depression Screening: Negative Not available 08/13/2023 11:25:56 Reason for Referral None Reported. Results Created Date Observation Date Name Description Value Unit Range Abnormal Flag Note LastModifiedBy Organization Detail LastModifiedTime 08/14/20 23 08/14/2023 CBC/C OMPLE TE BLD COUNT W/DIF F white blood cells 3.8 x10'3 /uL 4.2-10 .8 low Not Available [facility] (Lab) [address] [place], [address], 08/14/2023 12:28:45 08/14/2008/14/2023 CBC/C OMPLE TE BLD COUNT W/DIF F red blood cells 3.62 x10'6 /uL 3.80-5 .20 low Not Available [facility] (Lab) [address] [place], [address], 08/14/2023 12:28:45 08/14/2008/14/2023 CBC/C OMPLE TE BLD COUNT W/DIF F hemoglobin 12.1 g/dL 12.0-1 5.6 Not Available [facility] (Lab) [address] [place], [address], 08/14/2023 12:28:45 08/14/2008/14/2023 CBC/C OMPLE TE BLD COUNT W/DIF F hematocrit 37.1 % 35.7-4 5.7 Not Available [facility] (Lab) [address] [place], [address], 08/14/2023 12:28:45 08/14/2008/14/2023 CBC/C OMPLE TE BLD COUNT W/DIF F mean red cell volume 102.5 fL 82.0-9 9.0 high Not Available [facility] (Lab) [address] [place], [address], 08/14/2023 12:28:45 08/14/2008/14/2023 CBC/C OMPLE TE BLD COUNT W/DIF F mean red cell hemoglobin 33.4 pg 27.0-3 3.0 high Not Available [facility] (Lab) [address] [place], [address], 08/14/2023 12:28:45 08/14/20 23 08/14/2023 CBC/C OMPLE TE BLD COUNT W/DIF F mean RBC HGB concentratio n 32.6 g/dL 31.0-3 6.0 Not Available [facility] (Lab) [address] [place], [address], 08/14/2023 12:28:45 08/14/2008/14/2023 CBC/C OMPLE TE BLD COUNT W/DIF F red cell distribution width 13.0 % 11.8-1 5.5 Not Available [facility] (Lab) [address] [place], [address], 08/14/2023 12:28:45 08/14/2008/14/2023 CBC/C OMPLE TE BLD COUNT W/DIF F platelets 128 x10'3 /uL 150-40 0 low Not Available [facility] (Lab) [address] [place], [address], 08/14/2023 12:28:45 08/14/2008/14/2023 CBC/C OMPLE TE BLD COUNT W/DIF F mean platelet volume 11.6 fL 9.0-12 .4 Not Available [facility] (Lab) [address] [place], [address], 08/14/2023 12:28:45 08/14/2008/14/2023 CBC/C OMPLE TE BLD COUNT W/DIF F neutrophils 43.7 % 39.0-7 2.0 Not Available [facility] (Lab) [address] [place], [address], 08/14/2023 12:28:45 08/14/2008/14/2023 CBC/C OMPLE TE BLD COUNT W/DIF F lymphocytes 44.4 % 16.0-4 7.0 Not Available [facility] (Lab) [address] [place], [address], 08/14/2023 12:28:45 08/14/2008/14/2023 CBC/C OMPLE TE BLD COUNT W/DIF F monocytes 8.7 % 5.0-12 .0 Not Available [facility] (Lab) [address] [place], [address], 08/14/2023 12:28:45 08/14/2008/14/2023 CBC/C OMPLE TE BLD COUNT W/DIF F eosinophils 2.1 % 1.0-7. 0 Not Available [facility] (Lab) [address] [place], [address], 08/14/2023 12:28:45 08/14/2008/14/2023 CBC/C OMPLE TE BLD COUNT W/DIF F basophils 0.8 % 0.0-2. 0 Not Available [facility] (Lab) [address] [place], [address], 08/14/2023 12:28:45 08/14/2008/14/2023 CBC/C OMPLE TE BLD COUNT W/DIF F immature granulocytes 0.3 % 0.00-0 .50 Not Available [facility] (Lab) [address] [place], [address], 08/14/2023 12:28:45 08/14/2008/14/2023 CBC/C OMPLE TE BLD COUNT W/DIF F neutrophils, absolute count 1.67 x10'3 /uL 1.5-8. 0 Not Available [facility] (Lab) [address] [place], [address], 08/14/2023 12:28:45 08/14/2008/14/2023 CBC/C OMPLE TE BLD COUNT W/DIF F lymphocytes, absolute count 1.69 x10'3 /uL 1.07-3 .43 Not Available [facility] (Lab) [address] [place], [address], 08/14/2023 12:28:45 08/14/2008/14/2023 CBC/C OMPLE TE BLD COUNT W/DIF F monocytes, absolute count 0.33 x10'3 /uL 0.29-0 .99 Not Available [facility] (Lab) [address] [place], [address], 08/14/2023 12:28:45 08/14/2008/14/2023 CBC/C OMPLE TE BLD COUNT W/DIF F eosinophils, absolute count 0.08 x10'3 /uL 0.02-0 .53 Not Available [facility] (Lab) [address] [place], [address], 08/14/2023 12:28:45 08/14/2008/14/2023 CBC/C OMPLE TE BLD COUNT W/DIF F basophils, absolute count 0.03 x10'3 /uL 0.01-0 .08 Not Available [facility] (Lab) [address] [place], [address], 08/14/2023 12:28:45 08/14/2008/14/2023 CBC/C OMPLE TE BLD COUNT W/DIF F immature granulocytes ,absolute 0.01 x10'3 /uL 0.00-0 .05 Not Available [facility] (Lab) [address] [place], [address], 08/14/2023 12:28:45 08/14/2008/14/2023 CBC/C OMPLE TE BLD COUNT W/DIF F nucleated red blood cells 0.0 % -0 Not Available [facility] (Lab) [address] [place], [address], 08/14/2023 12:28:45 08/14/2008/14/2023 CBC/C OMPLE TE BLD COUNT W/DIF F NRBC# 0.00 x10'3 /uL Not Available [facility] (Lab) [address] [place], [address], 08/14/2023 12:28:45 08/14/2008/14/2023 COMPR EHENS KATIE METAB OLIC PANEL sodium 142 mmol/ L 137-14 5 Not Available [facility] (Lab) [address] [place], [address], 08/14/2023 12:30:47 08/14/2008/14/2023 COMPR EHENS KATIE METAB OLIC PANEL potassium 3.3 mmol/ L 3.5-5. 1 low Not Available [facility] (Lab) [address] [place], [address], 08/14/2023 12:30:47 08/14/2008/14/2023 COMPR EHENS KATIE METAB OLIC PANEL chloride 101 mmol/ L 98-107 Not Available [facility] (Lab) [address] [place], [address], 08/14/2023 12:30:47 08/14/2008/14/2023 COMPR EHENS KATIE METAB OLIC PANEL carbon dioxide 33 mmol/ L 22-30 high Not Available [facility] (Lab) [address] [place], [address], 08/14/2023 12:30:47 08/14/20 23 08/14/2023 COMPR EHENS KATIE METAB OLIC PANEL anion gap 11.3 mmol/ L 14-22 low Not Available [facility] (Lab) [address] [place], [address], 08/14/2023 12:30:47 08/14/2008/14/2023 COMPR EHENS KATIE METAB OLIC PANEL glucose 81 mg/dL 70-99 Not Available [facility] (Lab) [address] [place], [address], 08/14/2023 12:30:47 08/14/20 23 08/14/2023 COMPR EHENS KATIE METAB OLIC PANEL BUN 15 mg/dL 8-19 Not Available [facility] (Lab) [address] [place], [address], 08/14/2023 12:30:47 08/14/2008/14/2023 COMPR EHENS KATIE METAB OLIC PANEL creatinine 0.61 mg/dL 0.66-1 .25 low Not Available [facility] (Lab) [address] [place], [address], 08/14/2023 12:30:47 08/14/2008/14/2023 COMPR EHENS KATIE METAB OLIC PANEL GFR >60 Refer ence Range : [place] ge GFR Healt hy Adult : >60 mL/mi n/1.7 3 m2 Chron ic Kidne y Disea se: 15-60 mL/mi n/1.7 3 m2 Kidne y Failu re: <15/m L/min /1.73 m2 www.n iddk. nih.g ov The MDRD study equat ion has not been valid ated in child mague <18 years of age; pregn ant women ; the elder ly >85 years of age; or in some racia l or ethni c subgr oups, such as Hismi nics. Outsi de the valid ated glenroy eters , estim ated GFR is less accur ate, requi ring clini jose a judgm ent on a case- by-ca se basis . Clini jose a inter preta tion for other races and ages must be made by the clini cordelia. The MDRD study equat ion has not been valid ated for the evalu ation of serum creat inine relat ed to nutri malick l statu s or medic ation usage . For perso ns <18 years of age, a pedia tric GFR calcu lator is avail able on the NKF websi te: https ://james dhillon.o rg/pr ofess ional s/kdo qi/gf r_cal culat or Not Available [facility] (Lab) [address] [place], [address], 08/14/2023 12:30:47 08/14/2008/14/2023 COMPR EHENS KATIE METAB OLIC PANEL alkaline phosphatase 69 U/L 38-126 Not Available [facility] (Lab) [address] [place], [address], 08/14/2023 12:30:47 08/14/2008/14/2023 COMPR EHENS KATIE METAB OLIC PANEL alanine aminotransfe rase 16 U/L 0-35 Not Available [facility] (Lab) [address] [place], [address], 08/14/2023 12:30:47 08/14/2008/14/2023 COMPR EHENS KATIE METAB OLIC PANEL aspartate aminotransfe rase 26 U/L 15-37 Not Available [facility] (Lab) [address] [place], [address], 08/14/2023 12:30:47 08/14/2008/14/2023 COMPR EHENS KATIE METAB OLIC PANEL bilirubin, total 1.00 mg/dL 0.20-1 .30 Not Available [facility] (Lab) [address] [place], [address], 08/14/2023 12:30:47 08/14/20 23 08/14/2023 COMPR EHENS KATIE METAB OLIC PANEL calcium 9.4 mg/dL 8.4-10 .2 Not Available [facility] (Lab) [address] [place], [address], 08/14/2023 12:30:47 08/14/2008/14/2023 COMPR EHENS KATIE METAB OLIC PANEL total protein 6.1 g/dL 6.3-8. 2 low Not Available [facility] (Lab) [address] [place], [address], 08/14/2023 12:30:47 10/05/20 23 08/14/2023 COMPR EHENS KATIE METAB OLIC PANEL albumin 3.8 g/dL 3.0-4. 4 Not Available [facility] (Lab) [address] [place], [address], 08/14/2023 12:30:47 08/14/20 23 08/14/2023 COMPR EHENS KATIE METAB OLIC PANEL globulin 2.3 g/dL 2.6-4. 2 low Not Available [facility] (Lab) [address] [place], [address], 08/14/2023 12:30:47 08/14/2008/14/2023 COMPR EHENS KATIE METAB OLIC PANEL A/G ratio 1.7 ratio 1.0-2. 0 Not Available [facility] (Lab) [address] [place], [address], 08/14/2023 12:30:47 08/14/2008/14/2023 LIPID PANEL cholesterol 158 mg/dL 140-19 9 NIH ALEN NSUS RECOM MENDA TION FOR KINA STERO L: ADULT CHILD LOW RISK: <200 <170 BORDE RLINE : <200- 239 ----- HIGH RISK: >240 >200 Not Available [facility] (Lab) [address] [place], [address], 08/14/2023 12:30:53 08/14/2008/14/2023 LIPID PANEL triglyceride s 80 mg/dL 0-150 NIH ALEN NSUS REPOR T RECOM MENDA TION FOR TRIGL YCERI MAG: ADULT CHILD LOW RISK: <150 ----- BODER LINE: 150-1 99 ----- HIGH RISK: >200 ----- Not Available [facility] (Lab) [address] [place], [address], 08/14/2023 12:30:53 08/14/20 23 08/14/2023 LIPID PANEL HDL cholesterol 81 mg/dL 40- Not Available [facility] (Lab) [address] [place], [address], 08/14/2023 12:30:53 08/14/2008/14/2023 LIPID PANEL LDL cholesterol, calculated 61 mg/dL 0-130 NIH ALEN NSUS REPOR T RECOM MENDA TIONS FOR LDL: ADULT CHILD LOW RISK <130 <110 (OPTI MAL LDL) <100 ----- BORDE RLINE : 130-1 59 ----- HIGH RISK: >160 >130 A TRIGL YCERI DE RESUL T >400 INVAL IDATE S THE CALCU LATIO N FOR LDL FRACT IONAT ION - THE LDL RESUL T WILL NOT BE REPOR MACKENZIE. Not Available [facility] (Lab) [address] [place], [address], 08/14/2023 12:30:53 09/04/2009/05/2023 T4 FREE free T4 1.15 NG/dL 0.78-2 .19 Not Available [facility] (Lab) [address] [place], [address], 09/05/2023 09:40:10 09/04/2009/05/2023 TSH thyroid-stim ulating hormone <0.015 uIU/m L 0.465- 4.680 low Not Available [facility] (Lab) [address] [place], [address], 09/05/2023 09:02:35 09/04/2009/04/2023 VITAM IN B12 (SOPHY ELAINE ) vb12 295 pg/mL 239-93 1 Not Available [facility] (Lab) [address] [place], [address], 09/04/2023 17:01:41 09/04/2009/04/2023 FOLAT E, SERUM /PLAS MA folate >20.0 NG/mL 2.76-2 0.0 Not Available [facility] (Lab) [address] [place], [address], 09/04/2023 17:01:43 09/04/20 23 09/04/2023 T3 FREE free T3 4.2 pg/mL 2.77-5 .27 Not Available [facility] ([facility]) [address] [place], [address], 09/04/2023 17:17:59 04/14/20 23 04/14/2023 XR, knee No observ ation record ed. [email or web address] [address] [facility], [place], [address], 08/14/2023 08:54:17 10/27/20 23 10/13/2023 XR, lumba r spine No observ ation record ed. [email or web address] Not Available 08/2024 15:15:14 01/21/20 24 01/21/2024 US, echoc ardio gram No observ ation record ed. [email or web address] [address], [place], [address], 05/25/2024 12:08:38 01/23/20 24 01/23/2024 XR, knee, 4 or more view No observ ation record ed. [email or web address] [address], [place], [address], 06/17/2024 18:09:02 01/23/20 24 01/23/2024 XR, knee, 4 or more view No observ ation record ed. [email or web address] [address] [address], [place], [address], 06/17/2024 18:09:52 02/10/20 24 02/10/2024 MRI, lumba r spine , w/o contr ast [facility] [address] [place] [address] Patien t Name: MARTIN CARABALLO ion #: [id number] Sex: F : 1939 6 Dictat ed By: Michae l McConn ell Attend ing Physic bekah: TIAGO SELLERS Orderi ng Physic bekah: [email or web address] Exam Date: 2023 13:40 PM Exam Name: MRI L SPINE WO Admitt ing Diagno sis(es ): CLINIC AL INFORM ATION: Low back pain. TECHNI JOSE A INFORM ATION: Multis equenc e multip lanar MRI images of the lumbar spine were obtain ed withou t contra st. COMPAR ROSS: Radiog raphs dated 023. INTERP RETATI ON: Verteb ral body alignm ent is within normal limits . Or subacu te compre ssion fractu re involv ing the L1 verteb ral body with up to 30% loss of height . No signif icant retrop ulsion of the motorcycle designer ior cortex of L1 associ ated with the compre ssion fractu re. Mild marrow edema at the inferi or endpla te of T12, possib le contus ion withou t signif icant endpla te deform ity. [employer] ior elemen ts are intact . Visual ized spinal cord and cauda equina are within normal limits . The conus medull cayla is approp riate in signal at the L1-L2 level. Modera te to marked fatty atroph y of the lower lumbos acral parasp inal muscul ature. Partia lly visual ized T2 hyperi ntense struct ure in the left hemipe lvis measur ing up to 5.[address] visual ized dimens ion. T12-L1 : Diffus e disc bulge causin g modera te spinal canal stenos is, closer approx imatin g the ventra l aspect of the spinal cord and partia lly effaci ng the latera l recess es. Facet hypert rophy and mild encroa chment of the neural forami na by the disc bulge contri bute to modera te bilate ral neural forami nal stenos es. L1-L2: Disc desicc ation with diffus e disc bulge mildly flatte josue the ventra l aspect of the thecal sac. No signif icant spinal canal or neural forami nal stenos is. L2-L3: Disc desicc ation. No signif icant spinal canal stenos is. Facet hypert rophy with modera te right neural forami nal stenos is. L3-L4: Disc desicc ation with severe disc space narrow ing and diffus e disc Page 1 [facility] [address] [place] [address] Patien t Name: MARTIN CARABALLO ion #: [id number] Sex: F : 1939 6 Dictat ed By: Tiago weinstein Attend ing Physic bekah: JASMYN ARTEAGA Orderi ng Physic bekah: TIAGO SELLERS Exam Date: 2023 13:40 PM Exam Name: MRI L SPINE WO Admitt ing Diagno sis(es ): bulge and concom itant facet hypert rophy and infold ing of the ligame ntum flavum contri buting to modera te spinal canal stenos is with mild crowdi ng of the cauda equina . Partia l efface ment of the latera l recess es by the disc bulge. Facet hypert rophy and dorsal spurri ng contri bute to modera te bilate ral neural forami nal stenos es. L4-L5: Disc desicc ation with mild to modera te disc space narrow ing and diffus e disc bulge with concom itant facet hypert rophy and infold ing of the ligame ntum flavum contri buting to modera te spinal canal stenos is. Partia l efface ment of the latera l recess es bilate rally. Modera te bilate ral neural forami nal stenos es, right greate r than left. Modera te bilate ral facet joint effusi ons. L5-S1: Disc desicc ation. No signif icant spinal canal stenos is. Facet hypert rophy with mild to modera te bilate ral neural forami nal stenos es. Small bilate ral facet joint effusi ons. IMPRES SOHAIL: 1. Acute to subacu te appear ing compre ssion fractu re involv ing the L1 verteb ral body. 2. Mild marrow edema at the inferi or endpla te of T12, possib le contus ion. 3. 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 4. Partia lly visual ized T2 hyperi ntense mass in the left hemipe lvis, possib ly a large ovaria n cyst. Cystic neopla sm or other neopla sm not exclud ed. Furthe r evalua tion with pelvic ultras ound recomm ended. Electr onical ly Signed by: Tiago weinstein at 2023 16:11: 01 PM Page 2 [email or web address] [facility] (Imaging) [address] [place], [address], 02/14/2024 16:06:56 02/11/20 24 02/10/2024 scree josue breas t nilsa, bilat [facility] [address], [place] [address] Patien t Name: MARTIN CARABALLO ion #: [id number] Sex: F : 1939 6 Locati on: RAD Attend ing Physic bekah: TIAGO SELLERS Orderi ng Physic bekah: TIAGO SELLERS Exam Date: 02/10/20 24 1:00 PM Exam Name: MG HERNANDES BREAST NILSA BILAT Admitt ing Diagno sis(es ): MAMMOG MIRNA REPORT - FINAL EXAM: MG SCRN BREAST NILSA BILAT HISTOR Y: SCREEN ING MAMMOG MANJINDER 83-yea r-old female with no curren t breast compla ints. COMPAR ROSS: 2022, 2021 TECHNI QUE: Bilate ral CC and MLO views of the breast s were perfor med. Digita l Mammog mirna images were obtain ed. CAD (compu ter assist ed detect ion) was utiliz ed. 3D Digita l breast tomosy nthesi s was perfor med and used in the interp retati on of images . FINDIN GS: There are scatte red areas of fibrog landul ar densit y. No masses , asymme tries, suspic ious calcif icatio ns, or valerie ectura l Page 1 of 2 [facility] [place] Name: MARTIN CARABALLO ion #: [id number] Sex: F : 1939 6 Exam Date: 02/10/20 24 1:00 PM Exam Name: MG HERNANDES BREAST NILSA BILAT Admitt ing Diagno sis(es ): distor tion are seen. IMPRES SOHAIL: BIRADS 1: Assess ment comple te. Negati ve. Recomm end annual screen ing mammog mirna. Accord ing to the [employer], yearly mammog miguel are recomm ended starti ng at age 40 and contin uing as long as the woman is in good health . Clinic al Breast Exam should be part of the period health exam-a bout every 3 years for women in their 20s and 30s and every year for women 40 and over. Breast self-e xam is an option for women in their 20s. Any breast change noted on the breast self-e xam she would be report ed prompt ly to the [place]. A negati ve mammog mirna report should not discou rage follow -up or biopsy of a clinic ally signif icant findin g and/or abnorm ality. Dense breast tissue may obscur e small neopla sms. This [place] has been entere d into a mammog mirna remind er system with a target date for her next mammog manjinder. Create d and electr onical ly signed by: Bhupinder bentley MD Signed Date: 02/11/20 9:52 AM (CT) Dictat ed by: Bhupinder bentley MD (CT) (CT) Page 2 of 2 [email or web address] [facility] (Imaging) [address] [place], [address], 02/14/2024 16:06:57 03/01/20 24 03/01/2024 DEXA, axial skele ton [facility] [address] [place] [address] [address] [place] Name: MARTIN CARABALLO Access ion #: [id number] Sex: F : 1939 4 Dictat ed By: Taylor Prescott Attend ing Physic bekah: TIAGO SELLERS Orderbanner Physic bekah: TIAGO SELLERS Exam Date: 2023 12:11 PM Exam Name: XR DEXA-H IPS PELVIS SPINE Admitt ing Diagno sis(es ): 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 Fractu re probab ility calcul ated for an untrea mackenzie patien t. Fractu re probab ility may be lower if the patien t has receiv ed treatm ent. T-scor e: compar ross by annabel fernandez deviat ion (SD) to a young adult popula tion, amnae d for sex and ethnic ity (used for postme nopaus al women and men >50 years) and classi fied by WHO criter ia. -1.0: normal <-1.0 to >-2.5: osteop enia -2.5: osteop orosis -2.5 plus fragil ity fractu re: severe osteop orosis Page 1 [facility] [address] [place] [address] [id number] Patichantal landa Name: MARTIN CARABALLO Access ion #: [id number] Sex: F : 1939 4 Dictat ed By: Taylor Prescott Attend ing Physic bekah: JASMYN ARTEAGA ng Physic bekah: TIAGO SELLERS Exam Date: 2023 12:11 PM Exam Name: XR DEXA-H IPS PELVIS SPINE Admitt ing Diagno sis(es ): Z-scor e: compar ed by SD to an age, sex, and ethnic ity popula tion (used for premen opausa l women, men <50 years, and childr en instea d of T-scor e WHO criter ia 4) <-2.0: below expect ed range/ low bone densit y for age, and a cause should be sought Electr onical ly Signed by: Taylor Prescott at 2023 16:38: 54 PM Page 2 [email or web address] [facility] (Imaging) [address] [place], [address], 05/25/2024 10:08:07 03/01/20 24 03/01/2024 , pelvi s [facility] [address] [place] [address] [phone] Patien t Name: MARTIN CARABALLO ion #: [id number] Sex: F : 1939 4 Dictat ed By: Taylor Prescott Attend ing Physic bekah: TIAGO SELLERS ng Physic bekah: TIAGO SELLERS Exam Date: 2023 12:00 PM Exam Name: US PELVIS NON OB Admitt ing Diagno sis(es ): INDICA TION: Pelvic pain TECHNI QUE: Multip le real-t scottie graysc chris transa bdomin al sonogr aphic images along with color and duplex Dopple r of the uterus and ovarie s were obtain ed. COMPAR ROSS: No prior for compar ross. FINDIN GS: Post hyster ectomy . The right ovary is not visual ized The left ovary measur es 6.9 x 5.1 x 5.0 cm. Left ovaria n cyst contai josue debris measur es 6.6 cm. Blood flow is presen t to the left ovary. IMPRES SOHAIL: Left ovaria n cyst contai josue debris measur es 6.6 cm. Electr onical ly Signed by: Taylor Prescott at 2023 18:28: 13 PM Page 1 [email or web address] [facility] ([facility] [address] [place], [address], 05/25/2024 10:08:07 Result Notes None recorded. Problems Name Problem SNOMED Code Status Onset Date Resolution Date Notes Provider Name and Address Organization Details Recorded Time Acute urinary tract infection 005644689 Active 2022 Not Available [facility] 3 22:26:20 Laboratory test result abnormal 727199679 Active 2022 Not Available [facility] 3 22:26:20 Hypokalemia 93898131 Active 2022 Not Available [facility] 3 22:26:20 Pain in left lower limb 899458257 Active 2022 Not Available [facility] 3 22:26:20 Low back pain 221483364 Active 2022 Nicole gaffney [facility] 3 11:26:46 Basal cell carcinoma of skin 444028104 Active Not Available [facility] 3 22:26:20 Edema 711236466 Active Not Available [facility] 3 22:26:20 Syncope 188568956 Active Not Available [facility] 3 22:26:20 Osteopenia 282476333 Active Not Available [facility] 3 22:26:20 Pain in right knee Active 2016 Not Available [facility] 3 22:26:20 Osteoarthriti s 382573642 Active Not Available [facility] 3 22:26:20 Obesity 351441033 Active Not Available [facility] 3 22:26:20 Hyperlipidemi a 12175590 Active Not Available [facility] 3 22:26:20 Essential hypertension 90510648 Active Not Available [facility] 3 22:26:20 Urinary tract infectious disease 44498419 Active Not Available [facility] 3 22:26:20 Rhinitis 05648114 Active 2021 Not Available [facility] 3 22:26:20 Venous stasis 74539295 Active 2016 Not Available [facility] 3 22:26:20 Postmenopausa l state 43798634 Active Not Available [facility] 3 22:26:20 Neck pain 68653716 Active Not Available [facility] 3 22:26:20 Spinal stenosis in cervical region 70422423 Active 2022 Not Available [facility] 3 22:26:20 Fatigue 72802920 Active Not Available [facility] 3 22:26:20 Problem Notes None recorded. Procedures Surgical History Date Name Laterality Status Provider Name and Address Organization Details Recorded Time 08/13/20 23 Medicare Wellness CPT Code, subsequent completed Janeth Jha RN [place] - [place] [employer] [facility] 08/13/2023 11:20:00 09/27/20 21 excision of melanoma completed Not Available [facility] 01/08/2023 04:43:50 11/14/19 21 Most Recent Bone Density completed Not Available [facility] 01/08/2023 04:43:43 04/19/20 19 Cataract Surgery completed Not Available [facility] 01/08/2023 04:43:50 10/03/20 15 Date of Last Colonoscopy completed Not Available [facility] 01/08/2023 04:43:43 10/03/20 15 Colonoscopy completed Not Available [facility] 01/08/2023 04:43:50 06/24/20 10 Colonoscopy completed Not Available [facility] 01/08/2023 04:43:50 Dilation and curettage completed Not Available [facility] 01/08/2023 04:43:50 Foot Surgery completed Not Available [facility] 01/08/2023 04:43:50 Tonsillectomy completed Not Available [facility] 01/08/2023 04:43:50 Cholecystectomy completed Not Available [facility] 01/08/2023 04:43:50 Hysterectomy, Partial completed Not Available [facility] 01/08/2023 04:43:50 excision of basal cell carcinoma completed Not Available [facility] 01/08/2023 04:43:50 Imaging Results Imaging Date Name Status LastModified by Organization Details LastModified Time 04/14/2023 XR, knee completed [email or web address], [address], 08/14/2023 08:54:17 10/13/2023 XR, lumbar spine completed [email or web address] Inform ation not available 11/19/2023 15:15:14 01/21/2024 US, echocardiogram completed [email or web address] [address], [address], 05/25/2024 12:08:38 01/23/2024 XR, knee, 4 or more view completed [address], [address], 06/17/2024 18:09:02 01/23/2024 XR, knee, 4 or more view completed [address], [address], 06/17/2024 18:09:52 02/10/2024 MRI, lumbar spine, w/o contrast completed [email or web address] [facility] ([facility]) [address] [place], [address], 02/14/2024 16:06:56 02/10/2024 screening breast nilsa, bilat completed [email or web address] [facility] ([facility]) [address] [place], [address], 02/14/2024 16:06:57 03/01/2024 DEXA, axial skeleton completed [email or web address] [facility] ([facility]) [address] [place], [address], 05/25/2024 10:08:07 03/01/2024 US, pelvis completed [email or web address] [facility] ([facility]) [address] [place], [address], 05/25/2024 10:08:07 Procedure Notes None recorded. Medical Equipment None Reported. Allergies Allergen ID Allergen Name Allergen Category Reaction Reaction Severity Criticality Documentation Date Start Date Code Code System Note Provider Name and Address Organization Details Recorded Time 8825 Substance with sulfonami de structure and antibacte rial mechanism of action (substanc e) medicatio n Not available Not available Not available 01/08/2023 26778 8003 SNOMED unkno wn Not Available [facility] 3 05:06:42 8828 Product containin g penicilli n (product) medicatio n Not available Not available Not available 01/08/2023 67070 8001 SNOMED unkno wn Not Available [facility] 3 05:06:42 8830 aspirin medicatio n vomiting Not available Not available 01/08/2023 1191 RxNorm Not Available [facility] 3 05:06:42 8833 adhesive environme nt,medica tion rash severe Not available 01/08/2023 86180 UNK Not Available [facility] 3 05:06:42 Medications Name Sig Start Date Stop Date Status Note LastModified by Organization Details LastModified Time furosemid e 40 mg tablet TAKE 1 TABLET BY MOUTH EVERY DAY active Not Available Not Available No t Available nystatin 100,000 unit/mL oral suspensio n active Not Available Not Available Not Available prednison e 10 mg tablet [id number], [id number], 8v3espe active Not Available Not Available No t Available doxycycli ne hyclate 100 mg capsule TAKE 1 CAPSULE BY MOUTH TWICE DAILY FOR 7 DAYS 10/22 completed Not Available Not Available Not Available naproxen 375 mg tablet TAKE 1 TABLET BY MOUTH TWICE DAILY NEEDED FOR PAIN OR INFLAMMA TION active Not Available Not Available No t Available clindamyc in HCl 300 mg capsule TK 1 C PO TID FOR 7 DAYS active Not Available Not Available No t Available atorvasta tin 10 mg tablet TAKE 1 TABLET BY MOUTH DAILY active Not Available Not Available No t Available azithromy paula 250 mg tablet TAKE 2 TABLETS BY MOUTH FOR 1 DAY THEN TAKE 1 TABLET BY MOUTH DAILY FOR 4 DAYS 11/25 completed Not Available Not Available Not Available tizanidin e 4 mg tablet TAKE 1 TABLET BY MOUTH TWICE DAILY NEEDED 10/20 completed Not Available Not Available Not Available hydrocodo ne 5 mg-acetam inophen 325 mg tablet active Not Available Not Available Not Available prednison e 20 mg tablet TK 2 TS PO QD FOR 7 DAYS active Not Available Not Available No t Available clindamyc in HCl 150 mg capsule TAKE 1 CAPSULE BY MOUTH THREE TIMES DAILY FOR 3 DAYS 11/30 completed Not Available Not Available Not Available potassium chloride ER 10 mEq tablet,ex tended release TAKE 1 TABLET BY MOUTH EVERY DAY active Not Available Not Available No t Available acetamino phen 300 mg-codein e 30 mg tablet 01/02 completed Not Available Not Available Not Available ciproflox acin 250 mg tablet TAKE 1 TABLET BY MOUTH TWICE DAILY FOR 7 DAYS active Not Available Not Available No t Available Diovan 80 mg tablet active Not Available Not Available No t Available ciproflox acin 500 mg tablet Take 1 tablet twice a day by oral route for 7 days. 02/24 completed Not Available Not Available Not Available tramadol 50 mg tablet TAKE 1 TABLET BY MOUTH EVERY 6 HOURS NEEDED FOR PAIN 11/30 completed Not Available Not Available Not Available ketorolac 0.5 % eye drops 08/02 completed Not Available Not Available Not Available potassium chloride ER 20 mEq tablet,ex tended release(p art/cryst ) TAKE 1 TABLET BY MOUTH EVERY DAY 03/24 completed Not Available Not Available Not Available prednisol one acetate 1 % eye drops,liya pension 08/02 completed Not Available Not Available Not Available imiquimod 5 % topical cream packet APPLY 1 PACKET AT BEDTIME FRIDAY THROUGH FRIDAY FOR 1 MONTH 03/24 completed Not Available Not Available Not Available benzonata te 100 mg capsule Take 1 capsule 3 times a day by oral route for 7 days. active Not Available Not Available No t Available cephalexi n 500 mg capsule Take 1 capsule 3 times a day by oral route for 7 days. 08/13 completed Not Available Not Available Not Available fluoxetin e 10 mg capsule Take 1 capsule every day by oral route for 90 days. active Not Available Not Available No t Available diclofena c sodium 75 mg tablet,de layed release Take 1 tablet twice a day by oral route for 90 days. active Not Available Not Available No t Available etodolac 400 mg tablet Take 1 tablet twice a day by oral route. active Not Available Not Available No t Available gabapenti n 100 mg capsule Take 2 capsules by mouth every day at bedtime 10/29 completed Not Available Not Available Not Available ibuprofen 600 mg tablet TAKE 1 TABLET BY MOUTH TWICE DAILY FOR 21 DAYS active Not Available Not Available No t Available methylpre dnisolone 4 mg tablets in a dose pack FOLLOW PACKAGE DIRECTIO NS active Not Available Not Available No t Available losartan 100 mg tablet TAKE 1 TABLET BY MOUTH DAILY active Not Available Not Available No t Available naproxen 500 mg tablet active Not Available Not Available Not Available valsartan 160 mg tablet Take 1 tablet every day by oral route for 90 days. active changed to losartan 100mg Not Available Not Available Not Available Vitamin D3 25 mcg (1,000 unit) capsule Take by oral route. 05/15 completed Not Available Not Available Not Available cyclobenz aprine 5 mg tablet TAKE 1 TABLET BY MOUTH EVERY 8 HOURS 10/22 completed Not Available Not Available Not Available moxifloxa paula 0.5 % eye drops 08/02 completed Not Available Not Available Not Available nitrofura ntoin monohydra te/macroc rystals 100 mg capsule TAKE 1 CAPSULE BY MOUTH EVERY 12 HOURS FOR 14 DAYS 07/29 completed Not Available Not Available Not Available Aleve QD 05/15 completed Not Available Not Available Not Available biotin 05/15 completed Not Available Not Available Not Available Fluad Quad (65yr up)(PF) 60 mcg (15 mcg x 4)/0.5mL IM syringe ADMINIST ER 0.5ML IN THE MUSCLE DIRECTED 10/23 completed Not Available Not Available Not Available Vitals Date Recorded Body height Body mass index (BMI) Body weight Body temperature Heart rate Oxygen saturation Oxygen saturation in Arterial blood by Pulse oximetry Systolic blood pressure Diastolic blood pressure Provider Name and Address Organization Details Last Updated DateTime 3 152.4 cm 32.8 kg/m2 42310.5 2 g 97.1 [degF] 75 /min 95 % 95 % 144 mm[Hg] 60 mm[Hg] Cecily Espinoza RN [place] - [facility] [employer] 3 10:12:40 Date Recorded Body height Body mass index (BMI) Body weight Body temperature Heart rate Systolic blood pressure Diastolic blood pressure Provider Name and Address Organization Details Last Updated DateTime 3 152.4 cm 31.2 kg/m2 26018.7 8 g 98.5 [degF] 86 /min 138 mm[Hg] 82 mm[Hg] Eulalia Mary Ye [facility] [employer] [facility] 3 10:56:06 Date Recorded Pain severity - 0-10 verbal numeric rating [Score] - Reported Provider Name and Address Organization Details Last Updated DateTime 08/13/2023 0 Janeth Jha RN [facility] [employer] [facility] 08/13/2023 11:20:23 Date Recorded Body height Body mass index (BMI) Body weight Body temperature Heart rate Systolic blood pressure Diastolic blood pressure Provider Name and Address Organization Details Last Updated DateTime 3 152.4 cm 30.5 kg/m2 37460.4 1 g 97.3 [degF] 77 /min 112 mm[Hg] 60 mm[Hg] Eulalia Mary Ye [facility] [employer] [facility] 3 14:42:03 Date Recorded Body height Body mass index (BMI) Body weight Body temperature Heart rate Systolic blood pressure Diastolic blood pressure Provider Name and Address Organization Details Last Updated DateTime 3 152.4 cm 30.5 kg/m2 18771.4 1 g 99.8 [degF] 90 /min 108 mm[Hg] 60 mm[Hg] Eulalia Mary Ye [facility] [employer] [facility] 3 09:55:34 Date Recorded Body height Body mass index (BMI) Body weight Body temperature Respiratory rate Pain severity - 0-10 verbal numeric rating [Score] - Reported Oxygen saturation Oxygen saturation in Arterial blood by Pulse oximetry Heart rate Systolic blood pressure Diastolic blood pressure Provider Name and Address Organization Details Last Updated DateTime 4 152.4 cm 29.3 kg/m2 03922.1 4 g 97.9 [degF] 20 /min 1 90 % 90 % 95 /min 98 mm[Hg] 72 mm[Hg] Kristina Bowden RN [facility] [employer] [facility] 4 11:49:44 Social History Question Answer Notes LastModified by Organization Details LastModified Time Tobacco Smoking Status Never Smoker Not Available [facility] 01/08/2023 04:19:06 Do You Have An Advance Directive? Yes Information not available 08/13/2023 What Is Your Level Of Alcohol Consumption? None MIGRATION.0301 [id number] Information not available 01/08/2023 Are You Blind Or Do You Have Difficulty Seeing? No MIGRATION.0301 156325 Information not available 01/08/2023 What Is Your Level Of Caffeine Consumption? Moderate MIGRATION.0301 029001 Information not available 01/08/2023 How Much Tobacco Do You Chew? None MIGRATION.0301 452715 Information not available 01/08/2023 In The 14 Days Before Symptom Onset, Have You Had Close Contact With A Laboratory-conf irmed COVID-19 While That Case Was Ill? No MIGRATION.0301 406974 Information not available 01/08/2023 In The 14 Days Before Symptom Onset, Have You Had Close Contact With A Person Who Is Under Investigation For COVID-19 While That Person Was Ill? No MIGRATION.0301 [id number] Information not available 01/08/2023 Are You Currently Employed? No Information not available 03/24/2023 Are You Deaf Or Do You Have Serious Difficulty Hearing? No MIGRATION.0301 319003 Information not available 01/08/2023 What Type Of Diet Are You Following? SPECIFIC MIGRATION.0301 188899 Information not available 01/08/2023 Which Illicit Or Recreational Drugs Have You Used? None MIGRATION.0301 672502 Information not available 01/08/2023 Do You Or Have You Ever Used E-cigarettes Or Vape? Never Used Electronic Cigarettes MIGRATION.0301 435026 Information not available 01/08/2023 What Is Your Occupation? Retired MIGRATION.0301 353836 Information not available 01/08/2023 Have There Been Any Changes To Your Family Or Social Situation? No MIGRATION.0301 587379 Information not available 01/08/2023 What Is The Fluoride Status Of Your Home? Unknown MIGRATION.0301 204097 Information not available 01/08/2023 Are There Any Guns Present In Your Home? No MIGRATION.0301 563224 Information not available 01/08/2023 Do You Use Insect Repellent Routinely? No MIGRATION.0301 721346 Information not available 01/08/2023 Where Do You Live? SingleLevelHouse With Basement Information not available 08/13/2023 Presence Of Domestic Violence No Information not available 08/13/2023 Guns Present In The Home? No Information not available 08/13/2023 Are You Able To Care For Yourself? Yes Information not available 08/13/2023 Are You Blind Or Do Yo Have Difficulty Seeing? No Information not available 08/13/2023 Are You Deaf Or Do You Have Serious Difficulty Hearing? No Information not available 08/13/2023 General Stress Level? Low Information not available 08/13/2023 Live Alone Of With Others? With Others Information not available 08/13/2023 Do You Have A Medical Power Of Postal Inspector? Yes Information not available 08/13/2023 What Was The Date Of Your Most Recent Tobacco Screening? 09/03/2023 [email or web address] Information not available 09/03/2023 Do You Have Any Pets? Yes MIGRATION.0301 486855 Information not available 01/08/2023 What Is Your Relationship Status? MIGRATION.0301 066793 Information not available 01/08/2023 Do You Use Your Seat Belt Or Car Seat Routinely? Yes MIGRATION.0301 504784 Information not available 01/08/2023 Do You Have Smoke And Carbon Monoxide Detectors In Your Home? [facility] Information not available 08/13/2023 Are You Passively Exposed To Smoke? Yes MIGRATION.0301 249223 Information not available 01/08/2023 Do You Or Have You Ever Used Smokeless Tobacco? Never Used Smokeless Tobacco MIGRATION.0301 019812 Information not available 01/08/2023 Are There Any Smokers In Your House? Yes MIGRATION.0301 950941 Information not available 01/08/2023 How Much Tobacco Do You Smoke? No MIGRATION.0301 628704 Information not available 01/08/2023 What Types Of Sporting Activities Do You Participate In? None MIGRATION.0301 195959 Information not available 01/08/2023 Do You Feel Stressed (tense, Restless, Nervous, Or Anxious, Or Unable To Sleep At Night)? [id number] MIGRATION.0301 966440 Information not available 01/08/2023 Do You Use Any Illicit Or Recreational Drugs? No MIGRATION.0301 806276 Information not available 01/08/2023 Do You Use Sunscreen Routinely? Yes MIGRATION.0301 847569 Information not available 01/08/2023 Has Tobacco Cessation Counseling Been Provided? No MIGRATION.0301 625296 Information not available 01/08/2023 How Many Years Have You Smoked Tobacco? 0 MIGRATION.0301 027909 Information not available 01/08/2023 Have You Recently Traveled Abroad? No MIGRATION.0301 892605 Information not available 01/08/2023 Do You Have Any Dietary Restrictions? No MIGRATION.0301 647199 Information not available 01/08/2023 Do You Or Have You Ever Used Any Other Forms Of Tobacco Or Nicotine? No MIGRATION.0301 969265 Information not available 01/08/2023 Sex: Unknown Functional Status Question Answer Note LastModified by Organizat ion Details LastModified Time Do you have difficulty walking or climbing stairs? No MIGRATION.35083 37286 Information not available 01/08/2023 Do you have transportation difficulties? No MIGRATION.82335 91564 Information not available 01/08/2023 Are you able to walk? YESWOREST MIGRATION.11570 10439 Information not available 01/08/2023 Do you have difficulty doing errands alone? No MIGRATION.03435 30796 Information not available 01/08/2023 Are you able to care for yourself? Yes MIGRATION.82927 76987 Information not available 01/08/2023 Do you have difficulty dressing or bathing? No MIGRATION.14953 07957 Information not available 01/08/2023 What is your exercise level? Occasional active lifestyle Information not available 08/13/2023 Mental Status Question Answer Note LastModified by Organizat ion Details LastModified Time Do you have difficulty concentrating, remembering or making decisions? No MIGRATION.[id number] 6 Information not available 01/08/2023 Family History Relationship Description Onset Age of this Age Resolved Age Notes LastModified by Organization Details LastModified Time Mother Heart disease MIGRATION.885 [id number] Not available 01/08/2023 04:43:52 Mother Hypertensive disorder MIGRATION.385 [id number] Not available 01/08/2023 04:43:53 Father Heart disease MIGRATION.112 [id number] Not available 01/08/2023 04:43:53 Father Hypertensive disorder MIGRATION.554 [id number] Not available 01/08/2023 04:43:53 Maternal Grandmother Heart disease MIGRATION.057 [id number] Not available 01/08/2023 04:43:53 Maternal Grandmother Malignant tumor of breast MIGRATION.614 6676444 Not available 01/08/2023 04:43:53 Sister Hypertensive disorder MIGRATION.790 [id number] Not available 01/08/2023 04:43:53 Brother Hypertensive disorder MIGRATION.016 [id number] Not available 01/08/2023 04:43:53 Brother Malignant neoplasm of brain MIGRATION.895 [id number] Not available 01/08/2023 04:43:53 Paternal Grandmother Cerebral arterioscler osis MIGRATION.400 1899133 Not available 01/08/2023 04:43:53 Medical History Condition Response NERVE DISEASE N BLINDNESS N RHEUMATIC FEVER N KIDNEY STONES N BLADDER PROBLEMS N MRSA N OTHER # 1 Y POLIO N LUNG DISEASE/DISORDER N COPD N RADIATION / CHEMOTHERAPY N Other # 2 N BLOOD DISEASES N SURGERY N EAR OR HEARING PROBLEMS N MUMPS N BOWEL PROBLEMS N DEPRESSION (INCLUDING POST ) N STROKE/TIA N ULCERS N BENIGN PROSTATIC HYPERPLASIA N MEASLES N MYOCARDIAL INFARCTION N OBESITY N GERD/NAUSEA N ANEURYSM N URINARY/BLADDER/KIDNEY PROBLEMS Y CORONARY ARTERY DISEASE (CAD) N ADDICTION CONCERNS N ENDOMETRIOSIS N Impotence N USE OF BLOOD THINNERS N SKIN PROBLEMS N GASTROINTESTINAL DISORDER N PERIPHERAL VASCULAR DISEASE N MUSCLE,JOINT OR BONE PROBLEMS N GASTROINTESTINAL BLEEDING N BLOOD CLOTS N ASTHMA N CATARACTS N ERECTILE DYSFUNCTION N VARICOSITIES N GI PROBLEMS N Low Testosterone N INFERTILITY N AIDS/HIV N CHEMOTHERAPY / RADIATION N LIVER DISEASE N MALE HYPOGONADISM N HYPERTENSION Y Deficiency Y ANXIETY DISORDER N BLOOD TRANSFUSION N ANEMIA/BLOOD DISORDER N CHRONIC EAR INFECTIONS N BRONCHITIS N TUBERCULOSIS N GLAUCOMA N FOOT PROBLEM N DIVERTICULITIS N SLEEP APNEA N CHICKENPOX N INFECTIOUS DISEASE N HEART ARRHYTHMIA N PROSTATE N INSOMNIA N HIGH CHOLESTEROL / HYPERLIPIDEMIA Y HYPERTHYROIDISM N EYE PROBLEMS N NEUROLOGICAL PROBLEMS N EDEMA Y CHRONIC PAIN SYNDROME N HYPOTHYROIDISM N CAROTID BLOCKAGE N CONSTIPATION N BACK / NECK PROBLEMS N HAVE YOU BEEN HOSPITALIZED OR SEEN IN [facility] IN THE PAST YEAR ? N ATHEROSCLEROSIS N BREAST PROBLEMS N DIALYSIS N ECZEMA N OSTEOPOROSIS N ARTHRITIS Y APPENDICITIS N DIABETES, TYPE N BAD TEETH N ENT N HEARTBURN / REFLUX N AUTISM SPECTRUM DISORDER (ASD) N HEPATITIS / LIVER DISEASE N GOUT N SLEEP DISORDER N ALZHEIMER'S DISEASE N Brain Problems N HERPES N DEMENTIA N HEADACHES/MIGRAINES N SEIZURES/EPILEPSY N VASCULAR DISEASE N PACEMAKER N Blood Disorder N DIZZINESS N HEART DISEASE/HEART PROBLEMS N KIDNEY DISEASE N MULTIPLE SCLEROSIS N CARDIAC ARRHYTHMIA N CANCER: SPECIFY Y ATRIAL FIBRILLATION N Gall Stones N PULMONARY EMBOLISM N AUTOIMMUNE DISEASE N Gynecological History Statement/Question Response Date of Last Pap Date of Last Mammogram 11/14/2020 Date of Last Colonoscopy 10/03/2015 Most Recent Bone Density 11/14/2020 Obstetrics History GPAL:G 0 P 0 0 0 0 Immunizations Vaccine Type Date Status Note Provider Nam e and Address Organization Details Recorded Time zoster live 9 completed Not Available [facility] 10/15/2023 22:06:31 pneumococcal polysaccharide PPV23 2 completed Not Available [facility] 10/15/2023 22:06:31 Influenza, high-dose, quadrivalent, PF 0 completed Not Available [facility] 10/15/2023 22:06:31 COVID-19, mRNA, LNP-S, PF, 100 mcg/0.5mL dose or 50 mcg/0.25mL dose 1 completed Not Available [facility] 10/15/2023 22:06:31 COVID-19, mRNA, LNP-S, PF, 100 mcg/0.5mL dose or 50 mcg/0.25mL dose 1 completed Not Available [facility] 10/15/2023 22:06:31 Pneumococcal conjugate PCV 13 6 completed Not Available [facility] 10/15/2023 22:06:31 Past Encounters Encounter ID Performer Location Encounter Start Date Encounter Closed Date Diagnosis/Indication Diagnosis SNOMED-CT Code Diagnosis ICD10 Code Diagnosis Note [id number] [facility] [address] [address] 02/19/2021 00:00:00 02/19/2021 10:34:33 [id number] [facility] [place] [address] [facility] [address] [address] 07/11/2021 00:00:00 07/30/2021 21:46:10 [id number] [facility] [address] [address] 08/10/2021 00:00:00 08/11/2021 15:29:06 [id number] [facility] [address] [place] [address] Edwarde., [address] [address] 1 11/30/2021 00:00:00 11/30/2021 21:41:40 [id number] [facility] [address] [place] [address] Edwarde., [address] [address] 04/01/2022 00:00:00 04/08/2022 14:13:49 [id number] [facility] [address] [place] [address] Edwarde., [address] [address] 1 07/29/2022 00:00:00 07/30/2022 22:53:33 [id number] [facility] [address] [place] [address] Katie., [address] [address] 1 11/25/2022 00:00:00 11/25/2022 20:56:54 [id number] Iesha Sellers MD [facility] [address] [place] [address] Katie., [address] [address] 03/24/2023 10:04:35 03/24/2023 11:04:24 Essential hypertension 41697785 I10 Hyperlipidemia 44438439 E78.5 Obesity 214735780 E66.9 Venous stasis 91300228 I 87.8 Spinal guillermo nosis in cervical region 27513396 M48.02 Osteoarthritis 972748562 M19.90 [id number] Iesha Sellers MD [facility] [address] [place] [address] Edwarde., [address] [address] 08/13/2023 10:46:39 08/13/2023 11:31:20 Adult health examination 966181256 Z00.00 Screening for disorder 344217019 Z13.9 Essential hypertension 26926030 I10 Hyperlipidemia 39337629 E78.5 Obesity 979789763 E66.9 Osteoarthritis 569941791 M19.90 Spinal guillermo nosis in cervical region 90112738 M48.02 Venous stasis 15613538 I 87.8 [id number] Iesha Sellers MD [facility] Internal Med [facility] [address] [place] [address] [place] [address] 09/03/2023 14:31:12 09/03/2023 16:12:39 Pain in left lower limb 893098554 M79.008 [id number] Iesha Sellers MD [facility] Internal Med [facility] [address] [facility] [address] [address] 10/22/2023 09:30:32 10/22/2023 10:35:40 Low back pain 810062710 M54.50 [id number] Iesha Sellers MD [facility] Internal Med [facility] [address] [facility] [address] [address] 11/26/2023 11:18:42 11/26/2023 12:48:24 Essential hypertension 59896032 I10 Hyperlipidemia 18842489 E78.5 Edema 930547936 R60.9 Osteoarthritis 993539862 M19.90 Obesity 425300825 E66.9 Hypokalemia 35962725 E87 .6 Health Concerns Section Related Observation LastModified by Organization Detai ls LastModified Time None Recorded Concern Status LastModified by Organization Details LastModified Time None Recorded Advance Directives Directive Y: Payers Encounter Date Sequence Insurance Name Policy Number Policy [place] Covered Member ID [place] Member ID Guarantor Name 03/24/2023 1 [place] Lillian Hayden [id number] Lillian Hayden 03/24/2023 2 [employer]ARP HEALTHCARE OPTION - PLAN F (MEDICARE SUPPLEMENT) Lillian Hayden [id number] Lillian Hayden 08/13/2023 1 [place] Lillian Hayden [id number] Lillian Hayden 08/13/2023 2 [employer] HEALTHCARE OPTION - PLAN F (MEDICARE SUPPLEMENT) Lillian Hayden [id number] Lillian Hayden 09/03/2023 1 [place] Lillian Hayden [id number] Lillian Hayden 09/03/2023 2 [employer]ARP HEALTHCARE OPTION - PLAN F (MEDICARE SUPPLEMENT) Lillian Hayden [id number] Lillian Hayden 10/22/2023 1 [place] Lililan Hayden [id number] Lillian Hayden 10/22/2023 2 [employer]ARP HEALTHCARE OPTION - PLAN F (MEDICARE SUPPLEMENT) Lillian Hayden [id number] Lillian Hayden 11/26/2023 1 [place] Lillian Hayden [id number] Lillian Hayden 11/26/2023 2 [employer]ARP HEALTHCARE OPTION - PLAN F (MEDICARE SUPPLEMENT) Lillian Hayden [id number] Lillian Hayden Notes Date Note Type Note Provider Name and Address Organization Details Recorded Time 3 text/html Hypertension no headache no dizziness. Hyperlipidemia does try to watch her intake of fat. Obesity not losing weight. Venous stasis has been stable. Cervical spinal stenosis no radiculopathy. Osteoarthritis really bothers her. Iesha Sellers MD [address], [place], [address], [employer] 03/24/2023 22:22:37 3 text/html Hypertension no headache no dizziness. Hyperlipidemia does try to watch her intake of fat. Obesity not losing weight. Venous stasis has been stable. Cervical spinal stenosis no radiculopathy. Osteoarthritis really bothers her. Medicare wellness completed Iesha Sellers MD [address], [place], [address], [employer] 08/17/2023 11:13:13 3 text/html about 6 weeks swelling in her thigh left no trauma does work outside she thinks it feels hot no numbness tingling no abdominal complaints Iesha Sellers MD [address], [place], [address], [employer] 09/03/2023 21:41:04 3 text/html Low back pains with some spasms after trying to help her Iesha Sellers MD [address], [place], [address], [employer] 11/11/2023 22:57:11 4 text/html Back is getting betterHypertension little bit on the low side today but she is not experiencing orthostasis symptomsHyperlipidemia does try to follow low-fat dietSpinal stenosis no numbness or tingling in legs Iesha Sellers MD [address], [place], [address], [employer] 12/09/2023 09:37:44 OBGyn Episode No OBEpisode recorded.
--- OUTSIDE RECORDS SUMMARY | 2025-02-02 09:38 | XMS_ITS | CONTINUITY OF CARE DOCUMENT ---
Author Name ottoniel alcazar Address Unknown Organization [facility] Address [address] [facility] [address] [place] [address] Phone [phone] Care Team Providers Care Formal Wear Rental Clerk Name Role Phone Leta FLETCHER, Dashawn Unavailable IESHA VINES MD Unavailable IESHA VINES MD Unavailable [phone] INSURANCE PROVIDERS Payer name Policy type / Coverage type [place] red libertarian ID [place] Medicare [id number] [facility] BT Imaging insurance emoquo [id number]
--- OUTSIDE RECORDS SUMMARY | 2025-02-02 09:38 | XMS_ITS | Encounter Summary ---
Author Organization [facility] Address [address] [facility] [place] [address] Care Team Providers Care Check Grader Name Role Phone Cirilo Sellers MD Primary Care Provider [phone] Cirilo Sellers MD Unavailable [phone] Encounter Details Date Type Department Care Team (Late st Contact Info) Description 09/27/[address] [facility] - DermPath Lab [address] [facility] [place] [phone] Vinh Louis MD [facility] [address] [place] [address] Neoplasm of uncertain behavior of skin Social History Tobacco Use Types Packs/Day Years Used Date Smoking Tobacco: Never Smokeless Tobacco: Never Alcohol Use Standard Drinks/Week Comments Never 0 (1 standard drink = 0.6 oz pur e alcohol) AUDIT-C Answer Date Recorded Q1: How often do you have a drink containing alc ohol? Never 09/27/2021 Average Number of Drinks Not on file Q3: How often do you have si x or more drinks on one occasion? Never 09/27/2021 Sex and Gender Information Value Date Recorded Sex Assigned at Not on file Gender Identity Not on file Sexual Orientation Not on file documented as of this encounter Functional Status Functional Status Response Date of Assess ment Is person deaf or have serious hearing difficult y? No 09/27/2021 Is person blind or have serious difficulty seein g? No 09/27/2021 Does person have serious dif ficulty walking/climbing stairs? No 09/27/2021 Does person have difficulty dressing/bathing? No 09/27/2021 Does person have difficulty doing errands alone? No 09/27/2021 Cognitive Status Response Date of Assessm ent Does person have difficulty concentrating/remembering/making decisions? No 09/27/2021 documented as of this encounter Plan of Treatment Not on file documented as of this encounter Procedures Procedure Name Priority Date/Time Associated Diagnosis Comments DERMATOPATHOLOGY Routine 09/27/2024 12:0 0 AM ACCOUNTING AUDITOR Neoplasm of uncertain behavior of skin documented in this encounter Results * DERMATOPATHOLOGY (09/27/2024 12:00 AM ACCOUNTING AUDITOR) Case Report Dermatopathology Report Case: [id number] Authorizing Provider: Vinh Louis MD Collected: 09/27/2024 12:00 AM Ordering Location: [facility] - Received: 09/28/2024 01:15 PM DermPath Lab Pathologist: Lacie Bryant MD Specimen: Skin, left eyebrow 4 3:01 PM ACCOUNTING AUDITOR DERMATOPATHOLOGY LABORATORY Final Diagnosis Specimen A. 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 The specimen consists of a shave biopsy measuring 5x4x1 mm. Jar 0. 4 3:01 PM ACCOUNTING AUDITOR DERMATOPATHOLOGY LABORATORY Microscopic Description Specimen A. SKIN, left eyebrow: There are prominent sebaceous gland lobules surrounding a dilated hair follicle. 4 3:01 PM ACCOUNTING AUDITOR DERMATOPATHOLOGY LABORATORY Disclaimer An external and internal positive and negative controls are appropriate for the histochemical, immunohistochemical and immunofluorescence stain(s) in this case (if any), except where stated explicitly. The performance characteristics of the stain(s) cited in this report were developed and its performance characteristic determined by the Dermatopathology Laboratory at [facility], directed by Dr. Tyler De Guzman. These tests need not be, and therefore are not, approved by the [place] Food and Drug Administration. The tests are used for clinical purposes. Billing Codes Specimen Charges Stain Charges 41605 1 4 3:01 PM [facility] DERMATOPATHOLOGY LABORATORY Embedded Images 4 3:01 PM [facility] DERMATOPATHOLOGY LABORATORY Pathology/Cytolog y TISSUE SPECIMEN FROM SKIN / Unknown 09/27/2024 09/28/2024 1:15 PM ACCOUNTING AUDITOR Vinh Louis MD LAB - PATHOLOGY/CYTO LOGY ORDERABLES DERMATOPATHOLOGY LABORATORY [facility] - Department of Dermatology [facility] [address] [place] [address], [address] [phone] documented in this encounter Visit Diagnoses Diagnosis Neoplasm of uncertain behavior of skin documented in this encounter Care Teams Check Grader Relationship Specialty Start Date End Date Cirilo Sellers MD PCP - General 08/22/21 Cirilo Sellers MD Internal Medicine 08/22/21 documented as of this encounter
--- OUTSIDE RECORDS SUMMARY | 2025-02-02 09:38 | XMS_ITS | Encounter Summary ---
Author Organization [facility] Address [address] [place] [address] Care Team Providers Care Sap Basis Consultant Name Role Phone Cirilo Sellers MD Primary Care Provider [phone] Cirilo Sellers MD Unavailable [phone] Encounter Details Date Type Department Care Team (Late st Contact Info) Description 12/12/2022 Lab Requisition [facility] Care DermPath Lab [address] [facility] [place] [phone] Bharath Bland MD [address] [place] [address] Social History Tobacco Use Types Packs/Day Years [...] Priority Date/Time Associated Diagnosis Comments DERMATOPATHOLOGY Routine 12/11/2022 12:0 0 AM SALES HOST documented in this encounter Results * DERMATOPATHOLOGY (12/11/2022 12:00 AM SALES HOST) Case Report Dermatopathology Report Case: [id number] Authorizing Provider: Bharath Bland MD Collected: 12/11/2022 12:00 AM Ordering Location: [facility] DermPath Lab Received: 12/12/2022 06:58 AM Pathologist: Yulissa Hamlin MD Specimens: A) - Skin, right frontal scalp B) - Skin, left temp scalp 5:56 PM SALES HOST DERMATOPATHOLOGY LABORATORY Final Diagnosis Specimen A. 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 SKIN, left temp scalp: HEALING SKIN CHANGES AND DERMAL FIBROSIS; SUPERFICIAL FRAGMENTS OF (L90.5) (see microscopic description and comment) 5:56 PM SALES HOST DERMATOPATHOLOGY LABORATORY Clinical History A: BCC B: R/O BCC, Recur 5:56 PM [facility] DERMATOPATHOLOGY LABORATORY Gross Description Specimen A: Received is one formalin filled container labeled with the patient's name and designated right frontal scalp. The specimen consists of a shave biopsy measuring 26h0i7ov. Jar 0. Specimen B: Received is one formalin filled container labeled with the patient's name and designated left temp scalp. The specimen consists of a shave biopsy measuring 9w0k2ti, 1e6o1ja, 0i1d6ex and 1h3d9yv(all pieces are friable). Jar 0. 3 5:56 PM [facility] DERMATOPATHOLOGY LABORATORY Microscopic Description Specimen A. SKIN, right frontal scalp: Within the dermis there are aggregates of basaloid cells with a high nuclear to cytoplasmic ratio and peripheral palisading. Specimen B. SKIN, left temp scalp: The specimen is fragmented and is composed of epidermis, superficial portions of dermis, and fragments of parakeratotic neutrophilic serum scale crust. There is epidermal hyperplasia beneath which there are vascular proliferation, fibroblasts, and an edematous stroma. There is focal dermal fibrosis. COMMENT: Given the superficial nature of the biopsy specimen, a deeper dermal process cannot be excluded. 3 5:56 PM [facility] DERMATOPATHOLOGY LABORATORY Disclaimer An external and internal positive and negative controls are appropriate for the histochemical, immunohistochemical and immunofluorescence stain(s) in this case (if any), except where stated explicitly. The performance characteristics of the stain(s) cited in this report were developed and its performance characteristic determined by the Dermatopathology Laboratory at [facility], directed by Dr. Tyler De Guzman. These tests need not be, and therefore are not, approved by the [place] Food and Drug Administration. The tests are used for clinical purposes. Billing Codes Specimen Charges Stain Charges 21948 73061 1 1 3 5:56 PM SALES HOST DERMATOPATHOLOGY LABORATORY Embedded Images 3 5:56 PM [facility] DERMATOPATHOLOGY LABORATORY Pathology/Cytology TISSUE SPECIMEN FROM SKIN / Unknown 12/11/2022 12/12/2022 6:58 AM SALES HOST Miscellaneous samples (specimen) TISSUE SPECIMEN FROM SKIN / Unknown 12/11/2022 12/12/2022 6:58 AM SALES HOST Bharath Bland MD LAB - PATHOLOGY/CYTO LOGY ORDERABLES DERMATOPATHOLOGY LABORATORY [facility] - Department of Dermatology [address], [address] [phone] documented in this encounter Visit Diagnoses Not on filedocumented in this encounter Care Teams Sap Basis Consultant Relationship Specialty Start Date End Date Cirilo Sellers MD PCP - General 08/22/21 Cirilo Sellers MD Internal Medicine 08/22/21 documented as of this encounter
--- OUTSIDE RECORDS SUMMARY | 2025-02-02 09:38 | XMS_ITS | Data Portability ---
Author Organization [facility] Address [address] [place] [address] Care Team Providers Care Watch Assembly Instructor Name Role Phone PIPPA KINGSLEY Referring Provider IESHA SELLERS Primary Care Provider [phone] Assessment Encounter Date Assessment Date Assessment LastModified by Organization Details LastModified Time 08/03/2024 08/03/2024 healthy lifestyle care instructions B12 T3-T4 TSH we will refer to orthopedics her arthritic complaints in her knees see me back in 3 months [email or web address] Not available 08/29/2024 20:50:03 01/05/2025 01/05/2025 blood work has been ordered Prevnar and Tdap today we will continue current therapy she will see me back in about 3 months they are asking for some paperwork to be filled out from the veterans administration for some ongoing help at home and we will try to accommodate the best we can Not available 01/05/2025 23:40:51 Plan of Treatment Reminders Order Date Submit Date Provider Last Modified By Organization Details Last Modified Time Details Appointments ANY 15 2024 10:00A Harriett Sellers MD Not available Not available Not available Lab CMP, serum or plasma 2024 025 [facility] TER[facility], [address] [facility], [place], [address], 01/07/2025 03:20:25 CBC w/ auto diff 2024 025 [facility] [address] [facility], [place], [address], 01/07/2025 03:20:24 magnesium , serum or plasma 2024 025 MARIA TERESA [facility], [address] [place] [address], [place], [address], 01/07/2025 03:20:24 cobalamin and folate panel, serum 2024 025 MARIA TERESA [facility], [address] [place] [address], [place], [address], 01/07/2025 03:20:23 TSH, ultra-sen sitive, serum 2023 024 cylma [facility], [address] [place] [address], [place], [address], 01/05/2025 12:48:19 unlisted lab - T4, free 2023 024 [email or web address] [facility], [address] [place] [address], [place], [address], 01/05/2025 12:54:15 T3, free, serum or plasma 2023 024 cylma [facility], [address] [place] [address], [place], [address], 01/05/2025 12:54:02 vitamin B12, serum 2023 024 [email or web address] [facility], [address] [place] [address], [place], [address], 08/25/2024 12:31:56 Referral None recorded. Procedures None recorded. Surgeries None recorded. Imaging None recorded. Medication Orders cyanocoba edison (vit B-12) 1,000 mcg/mL injection solution 2023 024 [email or web address] [facility], [address] [place] [address], [address], [id number], 08/31/2024 15:32:49 cyanocoba edison (vit B-12) 1,000 mcg/mL injection solution 2023 024 [email or web address] [facility], [address] [place] [address], [facility] [address] [place], [id number], 07/28/2024 11:58:26 cyanocoba edison (vit B-12) 1,000 mcg/mL injection solution 2023 024 [email or web address] [facility], [address] [place] [address], [facility] [address], [place], [id number], 07/21/2024 11:41:52 Patient TargetsNo targets recorded. Patient Instructions Encounter Date Encounter Id Patient Instructions Last Modified By Organization Details Last Modified Time 08/03/2024 [id number] A healthy lifestyle: care instructions [email or web address] Not available 08/03/2024 12:50:26 01/05/2025 [id number] A healthy lifestyle: care instructions [email or web address] Not available 01/05/2025 13:15:23 Reason for Referral None Reported. Results Created Date Observation Date Name Description Value Unit Range Abnormal Flag Note LastModifiedBy Organization Detail LastModifiedTime 08/03/2008/04/2024 VITAM IN B12 vitamin B12 646 pg/mL 232-12 45 Not Available [facility] ([facility]) [address] [facility], [place], [address], 08/04/2024 09:14:52 09/27/20 24 09/29/2024 Skin Patho logy biops y repor t pathology report.secti on heading Dermat opatho logy Report Case: [id number] Author izing Provid er: Vinh Flores MD Colle victoria: 2023 12:00 AM Orderi ng Locati on: [facility] - Receiv ed: 2023 01:15 PM DermPa th Lab Pathol ogist: Lacie Bear MD Specim en: Skin, left eyebro w Case Repor t [employer] topat holog y Repor t Case: [id number] Autho kyle rehman Provi kemal: Vinh Mccarty MD Colle cted: 09/27 12:00 AM Order ing Locat ion: [facility] - Recei david: 09/28 01:15 PM DermP ath Lab Patho logis t: Thalia Darling MD Speci men: Skin, left eyebr ow 09/29 3:01 PM ASSISTANT REAL ESTATE MANAGER DERMA TOPAT HOLOG Y LABOR ATORY Not Available Not Available 01/04/2025 10:54:35 09/27/20 24 09/29/2024 Skin Patho logy biops y repor t pathology report final diagnosis narrative Specim en A. SKIN, left eyebro w: SEBACE OUS HYPERP LASIA (L73.8 ) Final Diagn osis Speci men A. SKIN, left eyebr ow: SEBAC EOUS HYPER PLASI A (L73. 8) 09/29 3:01 PM ASSISTANT REAL ESTATE MANAGER DERMA TOPAT HOLOG Y LABOR ATORY Elect puneet boss d by Thalia Darling MD on 09/29 at 3:01 PM Not Available Not Available 01/04/2025 10:54:35 09/27/20 24 09/29/2024 Skin Patho logy biops y repor t pathology report relevant history narrative BCC Clini jose a Histo ry BCC 09/29 3:01 PM ASSISTANT REAL ESTATE MANAGER DERMA TOPAT HOLOG Y LABOR ATORY Not Available Not Available 01/04/2025 10:54:35 09/27/20 24 09/29/2024 Skin Patho logy biops y repor t pathology report gross observation narrative Specim en A: Receiv ed is one formal in filled contai ner labele d with the patien t's name and design ated left eyebro w. The specim en consis ts of a shave biopsy measur ing 5x4x1 mm. Jar 0. Gross Descr iptio n Speci men A: Recei david is one forma jose f fille d conta iner label ed with the patie nt's name and desig nated left eyebr ow. The speci men consi sts of a shave biops y measu ring 5x4x1 mm. Jar 0. 09/29 3:01 PM ASSISTANT REAL ESTATE MANAGER DERMA TOPAT HOLOG Y LABOR ATORY Not Available Not Available 01/04/2025 10:54:35 09/27/20 24 09/29/2024 Skin Patho logy biops y repor t pathology report microscopic observation narrative other stain Specim en A. SKIN, left eyebro w: There are promin ent sebace ous gland lobule s surrou nding a dilate d hair follic le. Micro scopi c Descr iptio n Speci men A. SKIN, left eyebr ow: There are promi nent sebac eous gland lobul es surro undin g a dilat ed hair folli loida. 09/29 3:01 PM ASSISTANT REAL ESTATE MANAGER DERMA TOPAT HOLOG Y LABOR ATORY Not Available Not Available 01/04/2025 10:54:35 09/27/20 24 09/29/2024 Skin Patho logy biops y repor t service comment An secondary spanish teacher al and physician internist al positi ve and negati ve contro ls are approp riate for the histoc hemica l, immuno histoc hemica l and immuno fluore scence stain( s) in this case (if any), except where stated explic itly. The perfor charissa charac terist ics of the stain( s) cited in this report were develo ped and its perfor charissa charac terist ic determ ined by the Dermat opatho logy Anna lafleur at [facility], direct ed by Dr. Tyler De Guzman . These tests need not be, and theref ore are not, approv ed by the [place] Food and Drug Admini strati on. The tests are used for clinic al purpos es. Billin g Codes Specim en Charge s Stain Charge s [id number] 1 Discl aimer An exter nal and inter nal posit carl and negat carl contr ols are appro priat e for the histo chemi jose a, immun ohist ochem ical and immun ofluo resce nce stain (s) in this case (if any), excep t where state d expli citly . The perfo rmanc e cassidy cteri stics of the stain (s) cited in this repor t were devel oped and its perfo rmanc e cassidy cteri stic deter mined by the [employer] topat holog y Labor atory at [facility] by Dr. Tyler Gage. These tests need not be, and there fore are not, appro david by the [facility] Food and Drug Admin istra tion. The tests are used for clini jose a purpo ses. Lakhwinder ng Codes Speci [place] [id number] 09/29 3:01 PM ASSISTANT REAL ESTATE MANAGER DERMA TOPAT HOLOG Y LABOR ATORY Not Available Not Available 01/04/2025 10:54:35 09/27/20 24 09/29/2024 Skin Patho logy biops y repor t embedded images Embed ded Image s 09/29 3:01 PM ASSISTANT REAL ESTATE MANAGER DERMA TOPAT HOLOG Y LABOR ATORY Not Available Not Available 01/04/2025 10:54:35 01/05/20 25 01/06/2025 COMP. METAB OLIC PANEL (14) glucose 101 mg/dL 70-99 above high normal Not Available [facility] ([facility]) [address] [place], [address], 01/06/2025 08:28:39 01/05/20 25 01/06/2025 COMP. METAB OLIC PANEL (14) BUN 24 mg/dL 8-27 Not Available [facility] ([facility]) [address] [place], [address], 01/06/2025 08:28:39 01/05/20 25 01/06/2025 COMP. METAB OLIC PANEL (14) creatinine 0.61 mg/dL 0.57-1 .00 Not Available [facility] ([facility]) [address] [place], [address], 01/06/2025 08:28:39 01/05/20 25 01/06/2025 COMP. METAB OLIC PANEL (14) eGFR 87 mL/mi n/1.7 3 >59 Not Available [facility] ([facility]) [address] [place], [address], 01/06/2025 08:28:39 01/05/20 25 01/06/2025 COMP. METAB OLIC PANEL (14) BUN/creatini ne ratio 39 12-28 above high normal Not Available [facility] ([facility]) [address] [place], [address], 01/06/2025 08:28:39 01/05/20 25 01/06/2025 COMP. METAB OLIC PANEL (14) sodium 143 mmol/ L 134-14 4 Not Available [facility] ([facility]) [address] [place], [address], 01/06/2025 08:28:39 01/05/20 25 01/06/2025 COMP. METAB OLIC PANEL (14) potassium 3.8 mmol/ L 3.5-5. 2 Not Available [facility] ([facility]) [address] [place], [address], 01/06/2025 08:28:39 01/05/20 25 01/06/2025 COMP. METAB OLIC PANEL (14) chloride 102 mmol/ L 96-106 Not Available [facility] ([facility]) [address] [place], [address], 01/06/2025 08:28:39 01/05/20 25 01/06/2025 COMP. METAB OLIC PANEL (14) carbon dioxide, total 26 mmol/ L 20-29 Not Available [facility] ([facility]) [address] [place], [address], 01/06/2025 08:28:39 01/05/20 25 01/06/2025 COMP. METAB OLIC PANEL (14) calcium 9.4 mg/dL 8.7-10 .3 Not Available [facility] ([facility]) [address] [place], [address], 01/06/2025 08:28:39 01/05/20 25 01/06/2025 COMP. METAB OLIC PANEL (14) protein, total 6.4 g/dL 6.0-8. 5 Not Available [facility] ([facility]) [address] [facility] [place], [address], 01/06/2025 08:28:39 01/05/20 25 01/06/2025 COMP. METAB OLIC PANEL (14) albumin 4.2 g/dL 3.7-4. 7 Not Available [facility] ([facility]) [address] [facility] [place] [place], [address], 01/06/2025 08:28:39 01/05/20 25 01/06/2025 COMP. METAB OLIC PANEL (14) globulin, total 2.2 g/dL 1.5-4. 5 Not Available [facility] ([facility]) [address] [place], [address], 01/06/2025 08:28:39 01/05/20 25 01/06/2025 COMP. METAB OLIC PANEL (14) bilirubin, total 0.6 mg/dL 0.0-1. 2 Not Available [facility] ([facility]) [address] [place], [address], 01/06/2025 08:28:39 01/05/20 25 01/06/2025 COMP. METAB OLIC PANEL (14) alkaline phosphatase 78 IU/L 44-121 Not Available [facility]) [address] [place], [address], 01/06/2025 08:28:39 01/05/20 25 01/06/2025 COMP. METAB OLIC PANEL (14) AST (SGOT) 18 IU/L 0-40 Not Available [facility] ([facility]) [address] [place], [address], 01/06/2025 08:28:39 01/05/20 25 01/06/2025 COMP. METAB OLIC PANEL (14) ALT (SGPT) 8 IU/L 0-32 Not Available [facility] ([facility]) [address] [facility], [address], 01/06/2025 08:28:39 01/05/20 25 01/06/2025 VITAM IN B12 AND FOLAT E vitamin B12 471 pg/mL 232-12 45 Not Available [facility] ([facility]) [address] [facility], [place], [address], 01/06/2025 08:28:40 01/05/20 25 01/06/2025 VITAM IN B12 AND FOLAT E folate (folic acid), serum 15.1 NG/mL >3.0 A serum folat e raisa ntrat ion of less than 3.1 ng/mL is consi dered to repre sent clini jose a defic iency . Not Available [facility] ([facility]) [address] [facility], [place], [address], 01/06/2025 08:28:40 01/05/2001/06/2025 MAGNE SIUM magnesium 2.0 mg/dL 1.6-2. 3 Not Available [facility] ([facility]) [address] [facility], [place], [address], 01/06/2025 08:28:40 01/05/20 25 01/06/2025 CBC WITH DIFFE RENTI AL/PL ATELE T WBC 4.8 x10e3 /uL 3.4-10 .8 Not Available [facility] ([facility]) [address] [facility], [place], [address], 01/06/2025 08:28:40 01/05/20 25 01/06/2025 CBC WITH DIFFE RENTI AL/PL ATELE T RBC 4.34 x10e6 /uL 3.77-5 .28 Not Available [facility] ([facility]) [address] [facility], [place], [address], 01/06/2025 08:28:40 01/05/20 25 01/06/2025 CBC WITH DIFFE RENTI AL/PL ATELE T hemoglobin 13.7 g/dL 11.1-1 5.9 Not Available [facility] ([facility]) [address] [facility], [place], [address], 01/06/2025 08:28:40 01/05/20 25 01/06/2025 CBC WITH DIFFE RENTI AL/PL ATELE T hematocrit 40.8 % 34.0-4 6.6 Not Available [facility] ([facility]) [address] [facility], [place], [address], 01/06/2025 08:28:40 01/05/20 25 01/06/2025 CBC WITH DIFFE RENTI AL/PL ATELE T MCV 94 fL 79-97 Not Available [facility] ([facility]) [address] [facility], [place], [address], 01/06/2025 08:28:40 01/05/20 25 01/06/2025 CBC WITH DIFFE RENTI AL/PL ATELE T MCH 31.6 pg 26.6-3 3.0 Not Available [facility] ([facility]) [address] [place], [address], 01/06/2025 08:28:40 01/05/20 25 01/06/2025 CBC WITH DIFFE RENTI AL/PL ATELE T MCHC 33.6 g/dL 31.5-3 5.7 Not Available [facility] ([facility]) [address] [place], [address], 01/06/2025 08:28:40 01/05/20 25 01/06/2025 CBC WITH DIFFE RENTI AL/PL ATELE T RDW 12.3 % 11.7-1 5.4 Not Available [facility] ([facility]) [address] [place], [address], 01/06/2025 08:28:40 01/05/20 25 01/06/2025 CBC WITH DIFFE RENTI AL/PL ATELE T platelets 143 x10e3 /uL 150-45 0 below low normal Not Available [facility] ([facility]) [address] [facility], [place], [address], 01/06/2025 08:28:40 01/05/20 25 01/06/2025 CBC WITH DIFFE RENTI AL/PL ATELE T neutrophils 58 % notest ab. Not Available [facility] ([facility]) [address] [facility], [place], [address], 01/06/2025 08:28:40 01/05/20 25 01/06/2025 CBC WITH DIFFE RENTI AL/PL ATELE T lymphs 32 % notest ab. Not Available [facility] ([facility]) [address] [facility], [place], [address], 01/06/2025 08:28:40 01/05/20 25 01/06/2025 CBC WITH DIFFE RENTI AL/PL ATELE T monocytes 8 % notest ab. Not Available [facility] ([facility]) [address] [facility], [place], [address], 01/06/2025 08:28:40 01/05/20 25 01/06/2025 CBC WITH DIFFE RENTI AL/PL ATELE T eos 1 % notest ab. Not Available [facility] ([facility]) [address] [place], [address], 01/06/2025 08:28:40 01/05/20 25 01/06/2025 CBC WITH DIFFE RENTI AL/PL ATELE T basos 1 % notest ab. Not Available [facility] ([facility]) [address] [place], [address], 01/06/2025 08:28:40 01/05/20 25 01/06/2025 CBC WITH DIFFE RENTI AL/PL ATELE T neutrophils (absolute) 2.8 x10e3 /uL 1.4-7. 0 Not Available [facility] ([facility]) [address] [facility], [place], [address], 01/06/2025 08:28:40 01/05/20 25 01/06/2025 CBC WITH DIFFE RENTI AL/PL ATELE T lymphs (absolute) 1.5 x10e3 /uL 0.7-3. 1 Not Available [facility] ([facility]) [address] [facility], [place], [address], 01/06/2025 08:28:40 01/05/20 25 01/06/2025 CBC WITH DIFFE RENTI AL/PL ATELE T monocytes(ab solute) 0.4 x10e3 /uL 0.1-0. 9 Not Available [facility] ([facility]) [address] [facility], [place], [address], 01/06/2025 08:28:40 01/05/20 25 01/06/2025 CBC WITH DIFFE RENTI AL/PL ATELE T eos (absolute) 0.0 x10e3 /uL 0.0-0. 4 Not Available [facility] ([facility]) [address] [facility], [place], [address], 01/06/2025 08:28:40 01/05/20 25 01/06/2025 CBC WITH DIFFE RENTI AL/PL ATELE T baso (absolute) 0.0 x10e3 /uL 0.0-0. 2 Not Available [facility] ([facility]) [address] [facility], [place], [address], 01/06/2025 08:28:40 01/05/20 25 01/06/2025 CBC WITH DIFFE RENTI AL/PL ATELE T immature granulocytes 0 % notest ab. Not Available [facility] ([facility]) [address] [facility], [place], [address], 01/06/2025 08:28:40 01/05/20 25 01/06/2025 CBC WITH DIFFE RENTI AL/PL ATELE T immature grans (abs) 0.0 x10e3 /uL 0.0-0. 1 Not Available [facility] ([facility]) [address] [facility], [place], [address], 01/06/2025 08:28:40 Result Notes None recorded. Problems Name Problem SNOMED Code Status Onset Date Resolution Date Notes Provider Name and Address Organization Details Recorded Time Compression fracture of lumbar spine 625485340 Active 2023 Alyssa Whitaker MA null, [place] - [facility] 4 12:42:02 Hyperlipidemia 27864755 Active 2023 Iesha Sellers MD Attn: Accountstephan g,[address] [facility], [place], [address], [place] - [facility] 4 12:56:28 Essential hypertension 57776067 Active 2023 Iesha Sellers MD Attn: Accountstephan g,[address] [facility], [place], [address], [place] - [facility] 4 12:56:36 Spinal stenosis in cervical region 43362371 Active 2023 Iesha Sellers MD Attn: Accountstephan g,[address] [facility], [place], [address], [place] [facility] 4 12:56:52 Hypokalemia 59433251 Active 2023 Iesha Sellers MD Attn: Accountin g,[address] [facility], [place], [address], [place] [facility] 4 12:57:05 Osteoarthritis 137779889 Active 2023 Iesha Sellers MD Attn: Estephania g,[address] [facility], [place], [address], [place] - [facility] 4 20:47:43 Problem Notes None recorded. Procedures Surgical History Date Name Laterality Status Provider Name and Address Organization Details Recorded Time Cholecystectomy completed Susana ragland MA [place] - [facility] 02/24/2024 14:03:20 Imaging Results None recorded. Procedure Notes None recorded. Medical Equipment None Reported. Allergies Allergen ID Allergen Name Allergen Category Reaction Reaction Severity Criticality Documentation Date Start Date Code Code System Note Provider Name and Address Organization Details Recorded Time 006965 aspirin medicatio n vomiting Not available Not available 01/12/2024 1191 RxNorm Not Available Not Available Not Available 848945 adhesive environme nt,medica tion Not available Not available Not available 01/12/2024 15880 UNK Not Available Not Available Not Available 747852 Product containin g penicilli n (product) medicatio n rash Not available Not available 02/24/2024 59824 8001 SNOMED Not Available Not Available Not Available 336162 aluminum aspirin Not available vomiting Not available Not available 01/05/20252016 611 RxNorm Not Available Not Available Not Available 254250 Substance with sulfonami de structure and antibacte rial mechanism of action (substanc e) medicatio n Not available Not available Not available 01/05/2025 95780 8003 SNOMED Not Available Not Available Not Available Medications Name Sig Start Date Stop Date Status Note LastModified by Organization Details LastModified Time furosemide 40 mg tablet TAKE 1 TABLET BY MOUTH DAILY active Not Available Not Available No t Available doxycycline hyclate 100 mg capsule TAKE 1 CAPSULE BY MOUTH TWICE DAILY FOR 7 DAYS 01/11 completed Not Available Not Available Not Available naproxen 375 mg tablet TAKE 1 TABLET BY MOUTH TWICE DAILY NEEDED FOR PAIN OR INFLAMMAT ION 05/04 completed Not Available Not Available Not Available donepezil 5 mg tablet TAKE 1 TABLET BY MOUTH EVERY NIGHT 01/05 completed Not Available Not Available Not Available atorvastati n 10 mg tablet TAKE 1 TABLET BY MOUTH DAILY 2024 active Not Available Not Available Not Avai lable tizanidine 4 mg tablet TAKE 1 TABLET BY MOUTH TWICE DAILY NEEDED 05/04 completed Not Available Not Available Not Available cephalexin 250 mg capsule TAKE 1 CAPSULE BY MOUTH EVERY DAY active Not Available Not Available No t Available potassium chloride ER 10 mEq tablet,exte nded release TAKE 1 TABLET BY MOUTH EVERY DAY 01/05 completed Not Available Not Available Not Available ciprofloxac in 250 mg tablet TAKE 1 TABLET BY MOUTH TWICE DAILY FOR 7 DAYS 01/11 completed Not Available Not Available Not Available cephalexin 500 mg capsule TAKE 1 CAPSULE BY MOUTH THREE TIMES DAILY FOR 7 DAYS 01/11 completed Not Available Not Available Not Available cyanocobala min (vit B-12) 1,000 mcg/mL injection solution Inject 1 mg every month by subcutane ous route as directed. 2023 active Not Available Not Available Not Avai lable ibuprofen 600 mg tablet TAKE 1 TABLET BY MOUTH TWICE DAILY FOR 21 DAYS 01/11 completed Not Available Not Available Not Available methylpredn isolone 4 mg tablets in a dose pack FOLLOW PACKAGE DIRECTION S 02/23 completed Not Available Not Available Not Available losartan 100 mg tablet TAKE 1 TABLET BY MOUTH EVERY DAY active Not Available Not Available No t Available cyclobenzap rine 5 mg tablet TAKE 1 TABLET BY MOUTH EVERY 8 HOURS 05/04 completed Not Available Not Available Not Available memantine 10 mg tablet TAKE 1 TABLET BY MOUTH TWICE DAILY active Not Available Not Available No t Available memantine 5 mg tablet TAKE 1 TABLET BY MOUTH TWICE DAILY 01/05 completed Not Available Not Available Not Available nitrofurant oin monohydrate /macrocryst als 100 mg capsule Take 1 capsule twice a day by oral route for 5 days. 05/04 completed Not Available Not Available Not Available Prolia 60 mg/mL subcutaneou s syringe inject 1ml every 6mths. 2024 active Not Available Not Available Not Avai lable potassium chloride ER 20 mEq tablet,exte nded release TAKE 1 TABLET BY MOUTH EVERY DAY active Not Available Not Available No t Available Vitals Date Recorded Body height Body mass index (BMI) Body weight Heart rate Oxygen saturation Oxygen saturation in Arterial blood by Pulse oximetry Systolic blood pressure Diastolic blood pressure Provider Name and Address Organization Details Last Updated DateTime 4 167.64 cm 23.2 kg/m2 16673.2 2 g 74 /min 98 % 98 % 106 mm[Hg] 68 mm[Hg] Darlin Angeles MA [facility] 4 11:50:27 Date Recorded Body height Body mass index (BMI) Provider Name and Address Organization Details Last Updated DateTime 01/05/2025 147.32 cm 30.7 kg/m2 Alyssa Whitaker [place] - [facility] 12:40:28 Date Recorded Body weight Heart rate Oxygen saturation Oxygen saturation in Arterial blood by Pulse oximetry Systolic blood pressure Diastolic blood pressure Provider Name and Address Organization Details Last Updated DateTime 5 69763.4 4 g 78 /min 97 % 97 % 110 mm[Hg] 54 mm[Hg] Darlin Angeles [place] - [facility] 5 11:45:38 Social History Question Answer Notes LastModified by Organization Details LastModified Time Tobacco Smoking Status Never Smoker Rani Shahid MA null, [place] - [facility] 01/12/2024 10:48:12 Do You Have An Advance Directive? Yes Information not available 08/03/2024 What Is Your Level Of Alcohol Consumption? Occasional Information not available 01/12/2024 Are You Blind Or Do You Have Difficulty Seeing? Yes Wears Glasses, Degeneration Information not available 01/12/2024 What Is Your Level Of Caffeine Consumption? Moderate Information not available 01/12/2024 In The 14 Days Before Symptom Onset, Have You Had Close Contact With A Laboratory-confi rmed COVID-19 While That Case Was Ill? No Information not available 08/03/2024 In The 14 Days Before Symptom Onset, Have You Had Close Contact With A Person Who Is Under Investigation For COVID-19 While That Person Was Ill? No Information not available 08/03/2024 Have You Been To An Area Known To Be High Risk For COVID-19? No Information not available 08/03/2024 Are You Currently Employed? No Information not available 01/12/2024 Are You Deaf Or Do You Have Serious Difficulty Hearing? Yes Wears Hearing Aids Information not available 01/12/2024 What Type Of Diet Are You Following? REGULAR Information not available 01/12/2024 What Is The Highest Grade Or Level Of School You Have Completed Or The Highest Degree You Have Received? AU90198-3 Information not available 01/12/2024 Are There Any Guns Present In Your Home? No Information not available 01/12/2024 What Was The Date Of Your Most Recent Tobacco Screening? 01/05/2025 Information not available 01/05/2025 What Is Your Relationship Status? Information not available 01/12/2024 Do You Use Your Seat Belt Or Car Seat Routinely? Yes Information not available 01/12/2024 Do You Have Smoke And Carbon Monoxide Detectors In Your Home? Yes Information not available 01/12/2024 Do You Feel Stressed (tense, Restless, Nervous, Or Anxious, Or Unable To Sleep At Night)? [id number] Information not available 01/12/2024 Do You Use Any Illicit Or Recreational Drugs? No Information not available 01/12/2024 Do You Use Sunscreen Routinely? No Information not available 01/12/2024 Has Tobacco Cessation Counseling Been Provided? No Information not available 01/05/2025 Do You Or Have You Ever Used Any Other Forms Of Tobacco Or Nicotine? No Information not available 01/05/2025 Sex: Female Functional Status Question Answer Note LastModified by Organizat ion Details LastModified Time Are you able to care for yourself? Yes Information not available 01/12/2024 What is your exercise level? Occasional Information not available 01/12/2024 Mental Status None recorded. Family History Relationship Description Onset Age of this Age Resolved Age Notes LastModified by Organization Details LastModified Time Mother Heart disease [email or web address] Not available 2024 10:58:18 Mother Hypertensive disorder [email or web address] Not available 2024 10:58:43 Father Heart disease [email or web address] Not available 2024 10:58:18 Father Hypertensive disorder [email or web address] Not available 2024 10:58:43 Maternal Grandmother Heart disease [email or web address] Not available 2024 10:58:18 Maternal Grandmother Malignant tumor of breast [email or web address] Not available 2024 10:59:04 Sister Hypertensive disorder [email or web address] Not available 2024 10:58:43 Brother Hypertensive disorder [email or web address] Not available 2024 10:58:43 Brother Malignant neoplasm of brain [email or web address] Not available 2024 10:59:21 Paternal Grandmother Cerebral arterioscler osis [email or web address] Not available 2024 10:59:39 Medical History Condition Response Coronary Artery Disease N High Blood Pressure Y Atrial Fibrillation N Kidney or Bladder Problems N Thyroid Problems N Depression N COPD N Blood Clots N GI Problems N Have you had a mammogram in the last yea r? Y Skin Problems N Anemia N Heart Attack ([place]) N Anxiety Disorder N Diabetes N Muscle, Joint, or Bone Problems Y Seizures/Epilepsy N Have you had a colonoscopy in the last 1 0 years? N Acid Reflux (GERD) N Cancer N Stroke N Asthma N Allergies N Have you had a PSA blood test in the las t year? N High Cholesterol Y Hepatitis N Headaches N Heart Failure N Osteoporosis N Gynecological HistoryNo gynecological history recorded. Obstetrics History GPAL:G 0 P 0 0 0 0 Immunizations Vaccine Type Date Status Note Provider Nam e and Address Organization Details Recorded Time Influenza, high-dose, quadrivalent, PF 2 completed CHRISTOPHER [place], [place] - [facility] 05/04/2024 12:22:54 Influenza, high-dose, quadrivalent, PF 1 [place]RI[place] [facility] 05/04/2024 12:22:54 Influenza, adjuvanted, quadrivalent, PF 3 completed CHRISTOPHER [place] [facility] 05/04/2024 12:22:54 COVID-19, mRNA, LNP-S, PF, 100 mcg/0.5mL dose or 50 mcg/0.25mL dose 1 completed [place]RI[place]HER [place] [facility] 05/04/2024 12:22:54 COVID-19, mRNA, LNP-S, PF, 100 mcg/0.5mL dose or 50 mcg/0.25mL dose 1 completed CHRISTOPHER [place] [facility] 05/04/2024 12:22:54 COVID-19, mRNA, LNP-S, PF, 100 mcg/0.5mL dose or 50 mcg/0.25mL dose 1 completed CHRISTOPHER [place] [facility] 05/04/2024 12:22:54 RSV, recombinant, protein subunit RSVpreF, adjuvant reconstituted, 0.5 mL, PF 3 completed CHRISTOPHER [place] [facility] 05/04/2024 12:22:54 COVID-19, mRNA, LNP-S, PF, 50 mcg/0.5 mL 3 completed [place]RI[place] [facility] 05/04/2024 12:22:54 pneumococcal polysaccharide PPV23 2 completed [place]RI[place] [facility] 05/04/2024 12:22:54 Pneumococcal conjugate PCV 13 6 completed Alyssa Whitaker [place] null, [place] [facility] 05/04/2024 12:22:54 zoster live 9 completed CHRISTOPHER [place] [facility] 05/04/2024 12:22:54 Influenza, split virus, trivalent, PF 0 completed CHRI[place]HER [place] [facility] 05/04/2024 12:22:54 Pneumococcal conjugate PCV20, polysaccharide [id number] conjugate, adjuvant, PF 5 completed [place]RI[place] [facility] 01/06/2025 10:03:23 Tdap 5 completed Iesha Sellers MD Attn: Accounting[address] [place], [address], [place] [facility] 01/05/2025 23:39:14 Past Encounters Encounter ID Performer Location Encounter Start Date Encounter Closed Date Diagnosis/Indication Diagnosis SNOMED-CT Code Diagnosis ICD10 Code Diagnosis Note [id number] Iesha Sellers MD [facility] (Adult Med) [address] [place] [phone] 0 01/12/2024 10:05:44 01/12/2024 11:42:12 Heart murmur 44124136 R01.1 Screening for cardiovascular system disease 955298045 Z13.6 Long-term drug therapy 922893138 Z79.899 Screening mammography 24 139605 Z12.31 Essential hypertension 59485245 I10 Hyperlipidemia 85906053 E78.5 Osteoarthritis 915265094 M19.90 Lumbar spondylosis 59534 0009 M47.721 [id number] MD [facility]alf Mackey (Adult Med) [address] [place] [address] [phone] 0 02/24/2024 13:52:32 02/24/2024 15:20:20 Pain in pelvis 38919680 R10.2 Memory impairment 833849 006 R41.3 [id number] MD Ralf Mackey (Adult Med) [address] [place] [address]7905-8[address] 0 05/04/2024 11:10:41 05/04/2024 13:02:22 Essential hypertension 15742661 I10 Hyperlipidemia 94746585 E78.5 Fatigue 36389599 R53.83 Hypokalemia 90546816 E87 .6 Compressio n fracture of lumbar spine 403820231 M48.56XA [id number] MD Ralf Mackey (Adult Med) [address] [place] [address] 74431-077 0 07/07/2024 10:54:20 07/07/2024 11:43:17 Vitamin B12 deficiency (non anemic) 34567052 E53.8 [id number] [facility] (Adult Med) [address] [place] [address] 85534-813 0 07/14/2024 10:44:32 07/14/2024 14:22:19 Vitamin B12 deficiency (non anemic) 61107272 E53.8 [id number] [facility] (Adult Med) [address] [place] [address] 70910-574 0 07/21/2024 11:14:22 07/21/2024 11:32:00 Vitamin B12 deficiency (non anemic) 88664433 E53.8 [id number] [facility] (Adult Med) [address] [place] [phone] 0 07/28/2024 10:49:38 07/28/2024 11:15:54 Vitamin B12 deficiency (non anemic) 23219410 E53.8 [id number] MD Ralf Mackey (Adult Med) [address] [place] [address] [phone] 0 08/03/2024 11:35:21 08/03/2024 12:41:07 Overweight 791871707 E66.3 Essential hypertension 13183529 I10 Serum uriel min B12 below reference range 765771723 R79.89 Hyperlipidemia 86853029 E78.5 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 10815412 M48.02 Osteoarthritis 083269547 M19.90 [id number] [facility] (Adult Med) [address] [place] [address] 08/31/2024 14:04:33 08/31/2024 14:55:01 Vitamin B12 deficiency (non anemic) 55377739 E53.8 [id number] MD Ralf Mackey (Adult Med) [address] [place] [address] 01/05/2025 11:07:48 01/05/2025 12:31:33 Body mass index 20-24 - normal 619060331 Z68.23 Overweight 536195769 E66 .3 Essential hypertension 16733827 I10 Hyperlipidemia 14571858 E78.5 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 64942990 M48.02 Osteoarthritis 098264329 M19.90 Serum uriel min B12 below reference range 455899629 R79.89 Administra tion of pneumococcal vaccine 94459500 Z23 Administra tion of diphtheria, pertussis, and tetanus vaccine 352352627 Z23 Health Concerns Section Related Observation LastModified by Organization Detai ls LastModified Time None Recorded Concern Status LastModified by Organization Details LastModified Time None Recorded Advance Directives Directive Y: Payers Encounter Date Sequence Insurance Name Policy Number Policy [place] Covered Member ID [place] Member ID Guarantor Name 07/21/2024 1 [place] Lillian Hayden [id number] Lillian Hayden 07/28/2024 1 [place] Lillian Hayden [id number] Lillian Hayden 08/03/2024 1 [place] Lillian Hayden [id number] Lillian Hayden 08/31/2024 1 [place] Lillian Hayden [id number] Lillian Hayden 01/05/2025 1 [place] Lillian Hayden [id number] Lillian Hayden Notes Date Note Type Note Provider Name and Address Organization Details Recorded Time 08/03/2024 text/html hypertension no headache or dizziness. Low B12 level getting supplementation has not noticed big difference. History of compression fracture of the back seems to be stable spinal stenosis cervical region no myelopathy type symptoms. Dementia donepezil and Namenda without deterioration in symptoms dyslipidemia taking her atorvastatin she is brought in by her daughter today Iesha Sellers MD Attn: Accounting[address] [facility], [place], [address], [facility] 08/29/2024 20:50:29 01/05/2025 text/html hypertension no headache or dizziness she did have a TIA stable. dementia appears to be stable spinal stenosis no new complaints osteoarthritis bothers her because she likes to venkat needs a B12 and folic acid rechecked also a pneumococcal vaccination. She was in with her daughter today who is pretty much handling money has power of contract attorney for financial affairs Iesha Sellers MD Attn: Accounting[address] [facility], [place], [address], [facility] 01/05/2025 23:41:08 OBGyn Episode No OBEpisode recorded.
--- OUTSIDE RECORDS SUMMARY | 2025-02-02 09:38 | XMS_ITS | Continuity of Care Document ---
Author Organization [facility] Address [address] [place] [address] [address] [place] [address] Phone Care Team Providers Care Tablet Technician Name Role Phone Davidson OD, Yosef Unavailable Unavailable Procedures Procedure Date Eye Exam, New Patient Refraction Advance Directives Directive Yes / No Effective Date File Name No Information Encounters Encounter Description Practice Location Reason(s) For Visit Diagnoses Date Provider Providers Copied on Encounter [facility], [address] [place] [address] [address], [place], [place], [id number], [place] tel:[phone] SEC [facility] No Information 0-200 8 Davidson OD Yosef. [address] [facility] [place] , [address], [place], [address], [place]. tel:[phone] Family History Family Member Type Diagnosis Age At Onset No Information Payers Payer name Insurance type Covered green party ID Authoriza tion(s) No Information Social History Type Description Quantity Date Captured Comments Sex Female Smoking Status No Information Chief Complaint And Reason For Visit No Information Reason For Referral Reason For Referral No Information History Of Present Illness Encounter Date Complaint History Of Prese nt Illness No Information Functional Status Date Functional Assessmen t No Information Instructions Date Instruction Additional Infor mation No Information Assessments Type Assessment Date No Information Patient Care Teams Name Effective Dates (start - stop) Status Members No Information
== END 2025-02-02 08:51 | disposition home or self-care (01) ==
PROVIDERS: PCP Internal Medicine; Visit Provider Orthopaedic Surgery
DX: M17.11 Unilateral primary osteoarthritis, right knee (principal); M17.12 Unilateral primary osteoarthritis, left knee
CPT/HCPCS: 73564